=== PATIENT | male | born 1950 | race Caucasian/White ===

== ENCOUNTER 2017-02-17 11:22 | Emergency (ER) | payer OTHER, MEDICARE ==
[~2017-02-17] VITALS: Ht 165.1 cm; Wt 66.8 kg
[~2017-02-17 11:22] MED LIST: ALBU17IN INH; CYAN1000VL IM; DOXY100T16 PO; FINA5TAB2 PO; FLOM5CAP PO; GABA-283 PO; IPRASOL4 INH; NAPR500T3 PO; OMEP20CA3 PO; PARO40TA2 PO; PRED10TA PO; SILD50TA PO; SYMB16INH INH; TRIA1OI TOP; [UNRECOGNIZED DRUG - CODE] PO
[2017-02-17] MEDS ORDERED: DULO1CAP3 PO (11:41)
[2017-02-17] MEDS ORDERED: PRAZ1CAP PO (11:41)
[2017-02-17] MEDS ORDERED: [UNRECOGNIZED DRUG - OTHER] (11:41)
[2017-02-17] MEDS ORDERED: PERCOCET 5MG/325MG TAB PO ONE (14:15)
--- NOTE | 2017-02-17 14:46 | REP ---
Left lower extremity Duplex Doppler venous ultrasound: Real time compression and duplex Doppler interrogation of the left lower extremity deep venous system is performed. The left common femoral, superficial femoral and popliteal veins are fully compressible with transducer pressure and demonstrate normal spontaneous and phasic flow, without evidence of deep venous thrombosis. Impression: No evidence of deep venous thrombosis of the left lower extremity femoral popliteal venous system. Signed by Kalin Purcell MD 02/17/2017 02:38 P
[2017-02-17 15:03] VITALS: BP 149/73
[2017-02-17] MEDS ORDERED: PERC5TAB12 PO (15:05)
--- NOTE | 2017-02-17 15:50 | REP ---
LEFT FEMUR: AP and lateral views of the left femur are performed. There is no acute fracture or dislocation. There is mild joint space narrowing, subchondral sclerosis and spurring at the hip joint. There is an oval calcific body adjacent to the greater trochanter of the proximal left femur measuring approximately 2.2 cm in maximum diameter. There is a metallic prosthesis at the knee. Signed by Kalin Purcell MD 02/17/2017 05:09 P
--- NOTE | 2017-02-18 08:58 | ED PDOC ---
Post-Departure Follow-Up radiology report faxed to Graciela Shahid MD Feb 18, 2017 08:58
== END 2017-02-17 15:13 | disposition home or self-care (01) ==
LOC: M ED 11:22
DX: S70.12XA Contusion of left thigh, initial encounter (principal); W19.XXXA Unspecified fall, initial encounter; Y92.89 Other specified places as the place of occurrence of the external cause; Y93.89 Activity, other specified; Y99.8 Other external cause status; I10 Essential (primary) hypertension; M54.5 Low back pain; N40.0 Benign prostatic hyperplasia without lower urinary tract symptoms; Z79.899 Other long term (current) drug therapy; Z88.8 Allergy status to other drugs, medicaments and biological substances; F17.210 Nicotine dependence, cigarettes, uncomplicated

== ENCOUNTER 2018-08-03 12:01 | Inpatient (IN) | payer OTHER, MEDICARE ==
[~2018-08-03] VITALS: Ht 165.1 cm; Wt 72.9 kg
[~2018-08-03 12:01] MED LIST changes: +DULO1CAP3 PO; +FLOM0.4C39 PO; -FLOM5CAP PO; -GABA-283 PO; +GABA-845 PO; +IPRA0.00 INH; -IPRASOL4 INH; +NAPR-885 PO; -NAPR500T3 PO; +PERC5TAB12 PO; +PRAZ1CAP PO; +PRED-351 PO; -PRED10TA PO; +[UNRECOGNIZED DRUG - OTHER]
[2018-08-03] MEDS ORDERED: LIDOCAINE 2% 5ML JELLY UROJET TOP ONE (12:45)
--- NOTE | 2018-08-03 12:46 | REP ---
PORTABLE CHEST X-RAY: Single view. HISTORY: Dyspnea and cough. COMPARISON STUDY: August 08, 2014. FINDINGS: EKG monitoring electrodes overlie the chest. Lungs are symmetrically aerated and clear. Heart is not enlarged. The aorta is calcific and slightly tortuous. Pulmonary vasculature is not increased. No significant bony abnormality. IMPRESSION: No active disease. Electronically Signed by Jeramie Ramirez MD 08/03/2018 10:26 P
[2018-08-03 12:49] LABS: VENOUS BASE EXCESS 3.2 (-2.0-2.0); VENOUS HCO3 24.3 MEQ/L (23.0-27.0); VENOUS O2 SATURATION 95.2 % (60.0-80.0); VENOUS PARTIAL PRESSURE CO2 28.2 mmHg (38.0-50.0); VENOUS PARTIAL PRESSURE O2 67.2 mmHg (30.0-50.0); VENOUS PH 7.554 UNITS (7.330-7.430); VENOUS STANDARD HCO3 27.3 MEQ/L; VENOUS TOTAL CO2 25.2 MEQ/L (24.0-28.0)
[2018-08-03 12:53] LABS: BASO # 0.1 10^3/uL (0.0-0.2); BASO % 0.3 % (0.0-1.0); HEMATOCRIT 42.6 % (42.0-52.0); HEMOGLOBIN 14.4 g/dl (13.5-17.5); LYMPH # 0.9 10^3/uL (1.5-4.5); LYMPH % 4.3 % (24.0-44.0); MEAN CORPUSCULAR HEMOGLOBIN 28.8 pg (27.0-33.0); MEAN CORPUSCULAR HGB CONC 33.8 g/dl (32.0-36.5); MEAN CORPUSCULAR VOLUME 85.2 fl (80.0-96.0); MONO # 0.9 10^3/uL (0.0-0.8); MONO % 4.4 % (0.0-5.0); NEUTROPHILS # 17.9 10^3/uL (1.8-7.7); NEUTROPHILS % 87.8 % (36.0-66.0); PLATELET COUNT, AUTOMATED 199 10^3/uL (150-450); WHITE BLOOD COUNT 20.4 10^3/uL (4.0-10.0)
[2018-08-03 13:04] LABS: INR 0.85; PROTHROMBIN TIME 11.7 SECONDS (12.1-14.4)
[2018-08-03] MEDS: IPRATROPIUM 0.5MG/ALBUTEROL 2.5MG INH SOL UD 3ML (DUONEB)(J7620) NEB PRN ×3 (13:04→15:05)
[2018-08-03] MEDS ORDERED: traMADol 50 MG TAB PO ONE (13:30)
[2018-08-03 13:35] LABS: ALBUMIN 2.9 GM/DL (3.2-5.2); ALT/SGPT 95 U/L (12-78); BILIRUBIN,DIRECT 0.2 MG/DL (0.0-0.2); BILIRUBIN,TOTAL 0.6 MG/DL (0.2-1.0); BLOOD UREA NITROGEN 18 MG/DL (7-18); CALCIUM LEVEL 8.7 MG/DL (8.8-10.2); CARBON DIOXIDE LEVEL 24 MEQ/L (21-32); CHLORIDE LEVEL 106 MEQ/L (98-107); CPK CREATINE PHOSPHOKINASE 37 U/L (39-308); CREATININE FOR GFR 1.08 MG/DL (0.70-1.30); GLOMERULAR FILTRATION RATE > 60.0 (>49); GLUCOSE, FASTING 97 MG/DL (70-100); MB/CK RELATIVE INDEX 6.49 (< OR =4); NT-PRO BNP 38 PG/ML (<125); POTASSIUM SERUM 4.7 MEQ/L (3.5-5.1); SODIUM LEVEL 138 MEQ/L (136-145); TOTAL PROTEIN 5.7 GM/DL (6.4-8.2); TROPONIN I 0.04 NG/ML (< 0.10)
[2018-08-03] MEDS ORDERED: ISOVUE-370 76% 100ML VIAL (Q9967) As Ordered ONE (13:46)
[2018-08-03] MEDS ORDERED: NS 1,000 ML IV ONE (14:30)
[2018-08-03] MEDS ORDERED: NS IV ONE (14:45)
[2018-08-03] MEDS ORDERED: DILUENT IV ONE (14:45)
[2018-08-03] MEDS ORDERED: PIPERACILLIN/TAZOBACTAM SOD 3.375 GM in D5W MINI-BAG PLUS 50 ML IV ONE (15:00)
--- NOTE | 2018-08-03 15:26 | REP ---
CT ABDOMEN AND PELVIS WITH IV CONTRAST: TECHNIQUE: Axial contrast enhanced images from the lung bases to the pubic symphysis using 100 mL Isovue 370 intravenous contrast material with multiplanar reformations. Visualized lung bases demonstrate a tiny calcified granuloma in the right lower lobe. The liver is unremarkable. Patient has had a prior cholecystectomy. I do not see significant biliary dilatation. The spleen, adrenals, pancreas are unremarkable. There is no hydronephrosis bilaterally. There are three subcentimeter calcifications in the left renal collection system likely representing calculi. There is atherosclerotic calcification of the abdominal aorta without aneurysm. There is no adenopathy. There is no free air or free fluid. No bowel wall thickening is seen. No pelvic mass is seen. Urinary bladder is moderately distended and contains a tiny amount of air probably from recent catheterization. IMPRESSION: Status post cholecystectomy. No biliary dilatation. No free air or free fluid. No bowel thickening. Small amount of air in the bladder, which is moderately distended, probably from recent catheterization. There are three subcentimeter intrarenal calculi in the left kidney. No hydronephrosis. Electronically Signed by Kalin Purcell MD 08/04/2018 03:29 P
[2018-08-03] MEDS ORDERED: ANEC4CRE3 TOP (16:10)
[2018-08-03] MEDS ORDERED: TRAZ-160 PO (16:10)
[2018-08-03] MEDS ORDERED: VENTAER INH (16:10)
[2018-08-03] MEDS ORDERED: ATOR40TA75 PO (16:10)
[2018-08-03] MEDS ORDERED: DOXY100C PO (16:10)
[2018-08-03] MEDS ORDERED: VITA100014 PO (16:10)
[2018-08-03] MEDS ORDERED: PRED5TA PO (16:10)
[2018-08-03] MEDS ORDERED: VITA-145 PO (16:10)
[2018-08-03] MEDS ORDERED: GABA-1171 PO (16:10)
[2018-08-03] MEDS ORDERED: XALA0.007 OU (16:10)
--- NOTE | 2018-08-03 16:54 | HPEPDOC ---
General Date of Admission 08/03/18 Chief Complaint The patient is a 68-year-old male admitted with a reason for visit of SOB. Source: Patient, RN/, Old records Exam Limitations: No limitations Severity: Moderate History of Present Illness 68 year old male with PMH of COPD on chronic steroids, BPH, PTSD, depression, tardive dyskinesia, urinary retention, Chronic compression fracture of L1 vertebra for which he gets injections , tremors, chronic back and hip pain, gait instability was recented hospitalized at [facility] from to July 31 where he had gone for inability to urinate. He was managed for urinary retention and COPD exacerbation. He had gone for a post hospitalization follow up with his PMD Dr Jaimes at the [facility] today and was noted to be extremely SOB, with difficulty in completing sentences, difficulty in ambulation ans so was sent to our ED for evaluation. In the ED he was found to be SOB , tachypneic but not hy poxic. He was having extreme difficulty with ambulation limited by SOB and hip pain. He also was complaining of lower abdominal pain . CT abdomen pelvis was suggestive of urinary retention. He had straight cath done but again could not void so a salcido was placed for acute urinary retention. Lab work showed a elevated WBC of 20k. CXR was clear for any acute disease. he was admitted for Advanced COPD with acute urinary retention, gait instability and difficulty in ambulation. Patient lives alone and has been having difficulty with his ADLS due to extreme weakness and SOB. His ex was helping him but he feels that he may be unable to manage by himself at home anymore. Home Medications Scheduled Atorvastatin Calcium (Atorvastatin Calcium) 40 Mg Tablet, 20 MG PO DAILY, (Reported) Cholecalciferol (Vitamin D3) (Vitamin D3) 1,000 Unit Tablet, 2,000 UNIT PO DAILY, (Reported) Cyanocobalamin (Vitamin B-12) (Vitamin B-12) 1,000 Mcg Tablet, 1,000 MCG PO BID, (Reported) Doxycycline Hyclate (Doxycycline Hyclate) 100 Mg Capsule, 100 MG PO BID, ( Reported) PATIENT HAS 5 CAPSULES LEFT IN BOTTLE Duloxetine Hcl (Duloxetine HCl) 60 Mg Cap, 60 MG PO DAILY, (Reported) Finasteride (Finasteride) 5 Mg Tab, 5 MG PO DAILY, (Reported) Gabapentin (Gabapentin) 100 Mg Capsule, 700 MG PO BID, (Reported) [facility] SENDS PATIENT 100MG TABLETS TO MAKE 700MG BID Ipratropium/Albuterol Sulfate (Iprat-Albut 0.5-3(2.5) mg/3 ml) 1 Shannan Shannan, 1 VIAL INH QID, (Reported) Latanoprost (Xalatan) 0.005% 2.5ML Drops, 1 DROP OU QHS, (Reported) Omeprazole (Omeprazole) 20 Mg Cap, 20 MG PO ACB, (Reported) Paroxetine HCl (Paroxetine HCl) 40 Mg Tab, 40 MG PO DAILY, (Reported) Prazosin Hcl (Prazosin HCl) 1 Mg Cap, 1 MG PO QHS, (Reported) Prednisone (Prednisone) 5 Mg Tablet, 5 MG PO DAILY, (Reported) Sildenafil Citrate (Viagra) 50 Mg Tab, 50 MG PO ASDIRECTED, (Reported) Tamsulosin HCl (Flomax) 0.4 Mg Cap, 0.4 MG PO BID, (Reported) Trazodone HCl (Trazodone HCl) 50 Mg Tablet, 50 MG PO QHS, (Reported) Scheduled PRN Albuterol Sulfate (Ventolin Hfa) 18 Gm Hfa.aer.ad, 2 PUFF INH Q4H PRN for SHORTNESS OF BREATH, (Reported) Lidocaine (Anecream) 4% Cream..g., 1 APLCT TOP DAILY PRN for PAIN, (Reported) APPLIES TO HIP Allergies Coded Allergies: acetaminophen (Verified Allergy, Unknown, 08/03/18) methocarbamol (Verified Allergy, Unknown, 08/03/18) terazosin (Verified Allergy, Unknown, 08/03/18) vardenafil (Verified Allergy, Unknown, 08/03/18) Past Medical History Medical History COPD on chronic steroids, BPH, PTSD, depression, tardive dyskinesia, urinary retention, Chronic compression fracture of L1 vertebra for which he gets injections , tremors, chronic back and hip pain, gait instability Surgical History left knee replacement, cholecystectomy, tonsillectomy, back injections, left big toe surgery Family History Significant Family History: Diabetes, Hypertension Social History * Smoker: current smoker, greater than 1 pack/day Alcohol: Denies Drugs: denies A-FIB/CHADSVASC A-FIB History Current/History of A-Fib/PAF?: No Review of Systems Constitutional: Denies: Chills, Fever, Night Sweats Eyes: Denies: Pain, Vision change ENT: Denies: Head Aches, Ear Pain, Dysphagia Skin: Denies: Rash, Lesions, Breakdown Pulmonary: Reports: Dyspnea; Denies: Cough, Pleuritic Chest Pain Cardiovascular: Reports: Orthopnea, Edema; Denies: Chest Pain, Palpitations Gastrointestinal: Denies: Nausea, Vomiting, Abdominal Pain, Diarrhea Genitourinary: Reports: Frequency, Retention; Denies: Dysuria, Incontinence, Hematuria Musculoskeletal: Reports: Neck Pain, Back Pain, Joint Pain Neurological: Reports: Weakness Psych: Reports: Depression Physical Examination General Exam: Positive: Alert, Cooperative, No Acute Distress Eye Exam: Positive: Conjunctiva & lids normal ENT Exam: Positive: Atraumatic, Mucous membr. moist/pink, Tongue Midline, Other ENT (abnormal movement of tongue) Neck Exam: Positive: Supple Chest Exam: Positive: Rales (at both the bases), Rhonchi, Wheezing, Diminished Heart Exam: Positive: Tachycardic, Regular Rhythm, Normal S1, Normal S2; Negative: Rate Normal, Gallops, Murmurs, Rubs Telemetry: Positive: Sinus, Tachycardia Abdomen Exam: Positive: Normal bowel sounds, Soft, Other (obese) Skin Exam: Positive: Nl turgor and temperature; Negative: Breakdown, Lesion Neuro Exam: Positive: Strength at 5/5 X4 ext, Normal Tone, Reflexes 2+, Other (DTRs of the knee and ankle exacerbated. planters downgoing. ) Psych Exam: Positive: Anxiety, Oriented x 3 Vital Signs Vital Signs Date Time Temp Pulse Resp B/P (MAP) Pulse Ox O2 Delivery O2 Flow Rate FiO2 08/03/18 14:48 87 98 08/03/18 13:48 147/75 (99) 08/03/18 13:39 20 08/03/18 12:25 Room Air 08/03/18 12:17 97.7 Laboratory Data Labs 24H Laboratory Tests 2 08/03/18 12:29: Lactic Acid Level 2.8*H 08/03/18 12:38: Immature Granulocyte % (Auto) 3.2H, White Blood Count 20.4H, Red Blood Count 5.00, Hemoglobin 14.4, Hematocrit 42.6, Mean Corpuscular Volume 85.2, Mean Corpuscular Hemoglobin 28.8, Mean Corpuscular Hemoglobin Concent 33.8, Red Cell Distribution Width 14.8H, Platelet Count 199, Neutrophils (%) (Auto) 87.8H, Lymphocytes (%) (Auto) 4.3L, Monocytes (%) (Auto) 4.4, Eosinophils (%) (Auto) 0.0, Basophils (%) (Auto) 0.3, Neutrophils # (Auto) 17.9H, Lymphocytes # (Auto) 0.9L, Monocytes # (Auto) 0.9H, Eosinophils # (Auto) 0.0, Basophils # (Auto) 0.1, Nucleated Red Blood Cells % (auto) 0.0, Prothrombin Time 11.7L, Prothromb Time International Ratio 0.85, Blood Gas Bicarbonate Standard 27.3, Venous Blood pH 7.554H, Venous Blood Partial Pressure CO2 28.2L, Venous Blood Partial Pressure O2 67.2H, Venous Blood Total Carbon Dioxide 25.2, Venous Blood HCO3 24.3, Venous Blood Oxygen Saturation 95.2H, Venous Blood Base Excess 3.2H, Anion Gap 8, Glomerular Filtration Rate > 60.0, Calcium Level 8.7L, Aspartate Amino Transf (AST/SGOT) 34, Alanine Aminotransferase (ALT/SGPT) 95H, Alkaline Phosphatase 58, Total Bilirubin 0.6, Direct Bilirubin 0.2, Total Creatine Kinase 37L, Creatine Kinase MB 2.0, Creatine Kinase MB Relative Index 6.49H, Troponin I 0.04, LF-Lwn-S-Type Natriuretic Peptide 38, Total Protein 5.7L, Albumin 2.9L, Albumin/Globulin Ratio 1.04, Thyroid Stimulating Hormone (TSH) 3.200 08/03/18 13:16: Urine Color STRAW, Urine Appearance CLEAR, Urine pH 7.0, Urine Specific Center 1.008, Urine Protein NEGATIVE, Urine Glucose (UA) NEGATIVE, Urine Ketones NEGATIVE, Urine Blood NEGATIVE, Urine Nitrite NEGATIVE, Urine Bilirubin NEGATIVE, Urine Urobilinogen 0.2, Urine Leukocyte Esterase NEGATIVE, Urine WBC (Auto) 0, Urine RBC (Auto) 2, Urine Hyaline Casts (Auto) 0, Urine Bacteria (Auto) NEGATIVE, Urine Squamous Epithelial Cells 0, Urine Sperm (Auto) 08/03/18 16:21: CBC/BMP Laboratory Tests 08/03/18 12:38 Red Blood Count 5.00, Mean Corpuscular Volume 85.2, Mean Corpuscular Hemoglobin 28.8, Mean Corpuscular Hemoglobin Concent 33.8, Red Cell Distribution Width 14.8 H, Neutrophils (%) (Auto) 87.8 H, Lymphocytes (%) (Auto) 4.3 L, Monocytes (%) (Auto) 4.4, Eosinophils (%) (Auto) 0.0, Basophils (%) (Auto) 0.3, Neutrophils # (Auto) 17.9 H, Lymphocytes # (Auto) 0.9 L, Monocytes # (Auto) 0.9 H, Eosinophils # (Auto) 0.0, Basophils # (Auto) 0.1 Microbiology Microbiology 08/03/18 Blood Culture, Received Pending 08/03/18 Blood Culture, Received Pending Assessment/Plan 68 year old male with PMH of COPD on chronic steroids, BPH, PTSD, depression, tardive dyskinesia, urinary retention, Chronic compression fracture of L1 vertebra for which he gets injections , tremors, chronic back and hip pain, gait instability was recented hospitalized at [facility] from to July 31 where he had gone for inability to urinate. He was managed for urinary retention and COPD exacerbation. He had gone for a post hospitalization follow up with his PMD Dr Jaimes at the NH today and was noted to be extremely SOB, with difficulty in completing sentences, difficulty in ambulation ans so was sent to our ED for evaluation. In the ED he was found to be SOB , tachypnic but not hypoxic. He was having extreme difficulty with ambulation limited by SOB and hip pain. He also was complaining of lower abdominal pain . CT abdomen pelvis was suggestive of urinary retention. He had straight cath done but again could not void so a salcido was placed for acute urinary retention. Lab work showed a elevated WBC of 20k. CXR was clear for any acute disease. he was admitted for Advanced COPD with acute urinary retention, gait instability and difficulty in ambulation. Patient lives alone and has been having difficulty with his ADLS due to extreme weakness and SOB. His ex was helping him but he feels that he may be unable to manage by himself at home anymore. Acute urinary retention recurrent for past 7 days. Most probably due to BPH and may be ipratropium too However will get MRI to rule out any cord compression had a salcido placed in the ED continue flomax, finasteride. Leucocytosis probably due to steroids and stress demargination will order procalcitonin CXR cler, Ua clear, Abdomen ct no acute abnormality received zosyn in ED will hold of on further doses. COPD with emphysema with mild exacerbation Tachypniec and unable to speak in full sentences, accessory muscles working. will continue with duonebs, budesonide and steroid. PTSD continue prazosin, trazodone Chronic back pain , lumber vertebral compression fracture continue gabapentin, cymbalta. Tremors could be medication related. Tardive dyskinesia of the tongue and lips noted possibly due to psychiatric medications Hyperipidemia continue statin Gait instability will get PT eval DVT prophylaxis ordered. Plan / VTE VTE Prophylaxis Ordered?: Yes SAMIRA REA MD August 03, 2018 16:54
--- NOTE | 2018-08-03 19:38 | ECGEPIP ---
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
[2018-08-03 20:30] VITALS: BP 140/78
[2018-08-03] MEDS: TAMSULOSIN 0.4 MG CAP PO SCH (21:00)
[2018-08-03] MEDS: GABAPENTIN 100 MG CAP PO SCH (21:00)
[2018-08-03] MEDS: traZODone 50 MG TAB PO SCH (21:00)
[2018-08-03] MEDS: ENOXAPARIN 40 MG/0.4 ML SYRINGE (J1650) SC SCH (21:01)
--- NOTE | 2018-08-03 21:08 | REPVR ---
EXAM: MR Lumbar Spine Without Contrast. EXAM DATE/TIME: 08/03/2018 5:02 PM CLINICAL HISTORY: 68 years old, male; Signs and symptoms; Weakness; Additional info: Urinary retention new, difficulty walking, ? cord compressio TECHNIQUE: Imaging protocol: Multiplanar magnetic resonance images of the lumbar spine without intravenous contrast. COMPARISON: No relevant prior studies available. FINDINGS: Vertebrae: Unremarkable. There is straightening of the normal lumbar lordosis. L1-L2: Large anterior marginal osteophytes. Disc desiccation on the T2 weighted images.. No stenosis. L2-L3: Small anterior marginal osteophytes. Disc desiccation. Circumferential annulus bulge. No stenosis. L3-L4: Small anterior marginal osteophytes. Limbus vertebra. Modic type II endplate signal changes.. No stenosis. L4-L5: Narrowed intervertebral disc space with 5.7 mm of retrolisthesis of L5 with respect to L4. Small central area of signal loss within the disc on the T1 and T2-weighted images corresponds to a vacuum disc seen on CT scan.. Faint increased signal within the disc centrally on the T2-weighted images may be related to susceptibility effect from the vacuum disc. Circumferential annulus bulge with right posterior lateral disc extrusion. Narrowed right lateral recess. Hypertrophic facet arthropathy. Mild right foraminal stenosis. L5-S1: Narrowed intervertebral disc space. Modic type II endplate signal changes. Small area of increased signal within the disc on the T2-weighted images again corresponding to vacuum disc seen on CT scan. No stenosis. Spinal cord: The conus is posterior to L1.. No cord compression. Soft tissues: Unremarkable. IMPRESSION: 1. Grade 1 spondylolisthesis at L4-5 with right posterior lateral disc extrusion. Narrowed right lateral recess and mild right foraminal stenosis. 2. No spinal stenosis or cord compression Electronically signed by: Jing Peter On 08/03/2018 21:08:11 PM
[2018-08-03] MEDS: BUDESONIDE 0.5 MG/2 ML INHALATION SUSPENSION INH SCH (21:09)
[2018-08-03] MEDS: IPRATROPIUM 0.5MG/ALBUTEROL 2.5MG INH SOL UD 3ML (DUONEB)(J7620) NEB SCH (21:09)
[2018-08-03] MEDS: LATANOPROST 0.005% OPHTH SOLN 2.5 ML OU SCH (21:53)
[2018-08-03] MEDS: PRAZOSIN 1 MG CAP PO SCH (21:54)
[2018-08-04] MEDS: IPRATROPIUM 0.5MG/ALBUTEROL 2.5MG INH SOL UD 3ML (DUONEB)(J7620) NEB SCH ×4 (02:38→19:34)
[2018-08-04 06:00] VITALS: BP 107/56
[2018-08-04 06:15] LABS: BASO # 0.1 10^3/uL (0.0-0.2); BASO % 0.4 % (0.0-1.0); HEMATOCRIT 39.5 % (42.0-52.0); HEMOGLOBIN 13.2 g/dl (13.5-17.5); LYMPH # 1.2 10^3/uL (1.5-4.5); LYMPH % 6.9 % (24.0-44.0); MEAN CORPUSCULAR HEMOGLOBIN 29.1 pg (27.0-33.0); MEAN CORPUSCULAR HGB CONC 33.4 g/dl (32.0-36.5); MEAN CORPUSCULAR VOLUME 87.2 fl (80.0-96.0); MONO # 1.1 10^3/uL (0.0-0.8); MONO % 6.7 % (0.0-5.0); NEUTROPHILS # 14.2 10^3/uL (1.8-7.7); NEUTROPHILS % 83.6 % (36.0-66.0); PLATELET COUNT, AUTOMATED 178 10^3/uL (150-450); RED BLOOD COUNT 4.53 10^6/uL (4.30-6.10)
[2018-08-04 06:41] LABS: BLOOD UREA NITROGEN 12 MG/DL (7-18); CALCIUM LEVEL 8.2 MG/DL (8.8-10.2); CARBON DIOXIDE LEVEL 25 MEQ/L (21-32); CHLORIDE LEVEL 107 MEQ/L (98-107); CREATININE FOR GFR 0.94 MG/DL (0.70-1.30); GLOMERULAR FILTRATION RATE > 60.0 (>49); GLUCOSE, FASTING 118 MG/DL (70-100); POTASSIUM SERUM 3.7 MEQ/L (3.5-5.1); SODIUM LEVEL 139 MEQ/L (136-145)
[2018-08-04] MEDS: BUDESONIDE 0.5 MG/2 ML INHALATION SUSPENSION INH SCH ×2 (07:38→19:34)
[2018-08-04] MEDS: NS 1,000 ML IV SCH ×2 (07:42→20:01)
[2018-08-04] MEDS: DULoxetine 30 MG CAP (CYMBALTA) PO SCH (08:32)
[2018-08-04] MEDS: PARoxetine 20 MG TAB PO SCH (08:32)
[2018-08-04] MEDS: ENOXAPARIN 40 MG/0.4 ML SYRINGE (J1650) SC SCH (08:32)
[2018-08-04] MEDS: predniSONE 5 MG TAB PO SCH (08:32)
[2018-08-04] MEDS: GABAPENTIN 100 MG CAP PO SCH ×2 (08:32→20:01)
[2018-08-04] MEDS: OMEPRAZOLE 20 MG CAP PO SCH (08:32)
[2018-08-04] MEDS: ATORVASTATIN 20 MG TAB PO SCH (08:32)
[2018-08-04] MEDS: FINASTERIDE 5 MG TAB PO SCH (08:32)
[2018-08-04] MEDS: TAMSULOSIN 0.4 MG CAP PO SCH ×2 (08:32→20:01)
--- NOTE | 2018-08-04 12:31 | IPNPDOC ---
Subjective Date Seen The patient was seen on 08/04/18. Subjective Chief Complaint/HPI SOB , tremors, weakness Events since last encounter SOb is a little better , however still continues to be very weak with difficulty in mobilization. He does have some essential tremors in both the upper extremities. No fever or chills, no cough or phlegm. MRI noted no cord compression. Objective Physical Examination General Exam: Positive: Alert, Cooperative, No Acute Distress Eye Exam: Positive: Conjunctiva & lids normal ENT Exam: Positive: Atraumatic, Mucous membr. moist/pink, Tongue Midline, Other ENT (abnormal movement of tongue) Neck Exam: Positive: Supple Chest Exam: Positive: Rales (at both the bases), Diminished Heart Exam: Positive: Rate Normal, Regular Rhythm, Normal S1, Normal S2; Negative: Gallops, Murmurs, Rubs Abdomen Exam: Positive: Normal bowel sounds, Soft, Other (obese) Extremity Exam: Negative: Clubbing, Cyanosis, Edema Skin Exam: Positive: Nl turgor and temperature; Negative: Breakdown, Lesion Neuro Exam: Positive: Strength at 5/5 X4 ext, Normal Tone, Reflexes 2+, Other (DTRs of the knee and ankle exacerbated. planters downgoing. ) Psych Exam: Positive: Anxiety, Oriented x 3 Assessment /Plan Assessment 68 year old male with PMH of COPD on chronic steroids, BPH, PTSD, depression, tardive dyskinesia, urinary retention, Chronic compression fracture of L1 vertebra for which he gets injections , tremors, chronic back and hip pain, gait instability was recented hospitalized at [facility] from to July 31 where he had gone for inability to urinate. He was managed for urinary retention and COPD exacerbation. He had gone for a post hospitalization follow up with his PMD Dr Jaimes at the [place] today and was noted to be extremely SOB, with difficulty in completing sentences, difficulty in ambulation ans so was sent to our ED for evaluation. In the ED he was found to be SOB , tachypnic but not hypoxic. He was having extreme difficulty with ambulation limited by SOB and hip pain. He also was complaining of lower abdominal pain . CT abdomen pelvis was suggestive of urinary retention. He had straight cath done but again could not void so a salcido was placed for acute urinary retention. Lab work showed a elevated WBC of 20k. CXR was clear for any acute disease. he was admitted for Advanced COPD with acute urinary retention, gait instability and difficulty in ambulation. Patient lives alone and has been having difficulty with his ADLS due to extreme weakness and SOB. His ex was helping him but he feels that he may be unable to manage by himself at home anymore. Acute urinary retention recurrent for past 7 days. Most probably due to BPH and may be ipratropium too MRI negative for any cord compression had a salcido placed in the ED continue flomax, finasteride. Leucocytosis probably due to steroids and stress demargination will order procalcitonin CXR cler, Ua clear, Abdomen ct no acute abnormality received zosyn in ED will hold of on further doses. COPD with emphysema with mild exacerbation Tachypniec and unable to speak in full sentences, accessory muscles working. will continue with duonebs, budesonide and steroid. PTSD continue prazosin, trazodone Chronic back pain gets injections at the back continue gabapentin, cymbalta. Tremors could be medication related. Tardive dyskinesia of the tongue and lips noted possibly due to psychiatric medications Hyperipidemia continue statin Gait instability will get PT eval DVT prophylaxis ordered. Plan/VTE VTE Prophylaxis Ordered?: Yes VS, I&O, 24H, Fishbone Vital Signs/I&O Vital Signs Date Time Temp Pulse Resp B/P (MAP) Pulse Ox O2 Delivery O2 Flow Rate FiO2 08/04/18 06:00 98.3 84 20 107/56 (73) 96 08/03/18 12:25 Room Air I&O- Last 24 Hours up to 6 AM 08/04/18 06:00 Intake Total 1150 ml Output Total 4155 ml Balance -3005 ml Laboratory Data 24H LABS Laboratory Tests 2 08/03/18 12:29: Lactic Acid Level 2.8*H 08/03/18 12:38: Immature Granulocyte % (Auto) 3.2H, White Blood Count 20.4H, Red Blood Count 5.00, Hemoglobin 14.4, Hematocrit 42.6, Mean Corpuscular Volume 85.2, Mean Corpuscular Hemoglobin 28.8, Mean Corpuscular Hemoglobin Concent 33.8, Red Cell Distribution Width 14.8H, Platelet Count 199, Neutrophils (%) (Auto) 87.8H, Lymphocytes (%) (Auto) 4.3L, Monocytes (%) (Auto) 4.4, Eosinophils (%) (Auto) 0.0, Basophils (%) (Auto) 0.3, Neutrophils # (Auto) 17.9H, Lymphocytes # (Auto) 0.9L, Monocytes # (Auto) 0.9H, Eosinophils # (Auto) 0.0, Basophils # (Auto) 0.1, Nucleated Red Blood Cells % (auto) 0.0, Prothrombin Time 11.7L, Prothromb Time International Ratio 0.85, Blood Gas Bicarbonate Standard 27.3, Venous Blood pH 7.554H, Venous Blood Partial Pressure CO2 28.2L, Venous Blood Partial Pressure O2 67.2H, Venous Blood Total Carbon Dioxide 25.2, Venous Blood HCO3 24.3, Venous Blood Oxygen Saturation 95.2H, Venous Blood Base Excess 3.2H, Anion Gap 8, Glomerular Filtration Rate > 60.0, Calcium Level 8.7L, Aspartate Amino Transf (AST/SGOT) 34, Alanine Aminotransferase (ALT/SGPT) 95H, Alkaline Phosphatase 58, Total Bilirubin 0.6, Direct Bilirubin 0.2, Total Creatine Kinase 37L, Creatine Kinase MB 2.0, Creatine Kinase MB Relative Index 6.49H, Troponin I 0.04, WF-Lis-Y-Type Natriuretic Peptide 38, Total Protein 5.7L, Albumin 2.9L, A lbumin/Globulin Ratio 1.04, Thyroid Stimulating Hormone (TSH) 3.200 08/03/18 13:16: Urine Color STRAW, Urine Appearance CLEAR, Urine pH 7.0, Urine Specific [place] 1.008, Urine Protein NEGATIVE, Urine Glucose (UA) NEGATIVE, Urine Ketones NEGATIVE, Urine Blood NEGATIVE, Urine Nitrite NEGATIVE, Urine Bilirubin NEGATIVE, Urine Urobilinogen 0.2, Urine Leukocyte Esterase NEGATIVE, Urine WBC (Auto) 0, Urine RBC (Auto) 2, Urine Hyaline Casts (Auto) 0, Urine Bacteria (Auto) NEGATIVE, Urine Squamous Epithelial Cells 0, Urine Sperm (Auto) 08/03/18 16:21: 08/03/18 18:22: Lactic Acid Followup at 4 Hours 6.0*H 08/04/18 05:39: Immature Granulocyte % (Auto) 2.4, White Blood Count 17.0H, Red Blood Count 4.53, Hemoglobin 13.2L, Hematocrit 39.5L, Mean Corpuscular Volume 87.2, Mean Corpuscular Hemoglobin 29.1, Mean Corpuscular Hemoglobin Concent 33.4, Red Cell Distribution Width 14.8H, Platelet Count 178, Neutrophils (%) (Auto) 83.6H, Lymphocytes (%) (Auto) 6.9L, Monocytes (%) (Auto) 6.7H, Eosinophils (%) (Auto) 0.0, Basophils (%) (Auto) 0.4, Neutrophils # (Auto) 14.2H, Lymphocytes # (Auto) 1.2L, Monocytes # (Auto) 1.1H, Eosinophils # (Auto) 0.0, Basophils # (Auto) 0.1, Nucleated Red Blood Cells % (auto) 0.0, Anion Gap 7L, Glomerular Filtration Rate > 60.0, Blood Urea Nitrogen 12, Creatinine 0.94, Sodium Level 139, Potassium Level 3.7#, Chloride Level 107, Carbon Dioxide Level 25, Calcium Level 8.2L 08/04/18 10:04: Lactic Acid Level 4.1*H 08/04/18 11:26: Bedside Glucose (Misc Panel) 108 CBC/BMP Laboratory Tests 08/03/18 12:38 Red Blood Count 5.00, Mean Corpuscular Volume 85.2, Mean Corpuscular Hemoglobin 28.8, Mean Corpuscular Hemoglobin Concent 33.8, Red Cell Distribution Width 14.8 H, Neutrophils (%) (Auto) 87.8 H, Lymphocytes (%) (Auto) 4.3 L, Monocytes (%) (Auto) 4.4, Eosinophils (%) (Auto) 0.0, Basophils (%) (Auto) 0.3, Neutrophils # (Auto) 17.9 H, Lymphocytes # (Auto) 0.9 L, Monocytes # (Auto) 0.9 H, Eosinophils # (Auto) 0.0, Basophils # (Auto) 0.1 08/04/18 05:39 Red Blood Count 4.53, Mean Corpuscular Volume 87.2, Mean Corpuscular Hemoglobin 29.1, Mean Corpuscular Hemoglobin Concent 33.4, Red Cell Distribution Width 14.8 H, Neutrophils (%) (Auto) 83.6 H, Lymphocytes (%) (Auto) 6.9 L, Monocytes (%) (Auto) 6.7 H, Eosinophils (%) (Auto) 0.0, Basophils (%) (Auto) 0.4, Neutrophils # (Auto) 14.2 H, Lymphocytes # (Auto) 1.2 L, Monocytes # (Auto) 1.1 H, Eosinophils # (Auto) 0.0, Basophils # (Auto) 0.1, Calcium Level 8.2 L Microbiology Microbiology 08/03/18 Blood Culture, Received Pending 08/03/18 Blood Culture, Received Pending SAMIRA REA MD August 04, 2018 12:31
[2018-08-04 14:00] VITALS: BP 137/65
[2018-08-04] MEDS: LATANOPROST 0.005% OPHTH SOLN 2.5 ML OU SCH (20:01)
[2018-08-04] MEDS: traZODone 50 MG TAB PO SCH (20:01)
[2018-08-04] MEDS: PRAZOSIN 1 MG CAP PO SCH (20:03)
[2018-08-04 22:00] VITALS: BP 124/60
[2018-08-05] MEDS: IPRATROPIUM 0.5MG/ALBUTEROL 2.5MG INH SOL UD 3ML (DUONEB)(J7620) NEB SCH ×4 (01:20→19:40)
[2018-08-05 06:00] VITALS: BP 136/83
[2018-08-05 06:25] LABS: BASO # 0.1 10^3/uL (0.0-0.2); BASO % 0.6 % (0.0-1.0); EOS # 0.1 10^3/uL (0.0-0.50); EOS % 0.5 % (0.0-3.0); HEMATOCRIT 40.2 % (42.0-52.0); HEMOGLOBIN 13.2 g/dl (13.5-17.5); LYMPH # 2.1 10^3/uL (1.5-4.5); LYMPH % 20.8 % (24.0-44.0); MEAN CORPUSCULAR HEMOGLOBIN 29.3 pg (27.0-33.0); MEAN CORPUSCULAR HGB CONC 32.8 g/dl (32.0-36.5); MEAN CORPUSCULAR VOLUME 89.3 fl (80.0-96.0); MONO # 0.8 10^3/uL (0.0-0.8); MONO % 7.7 % (0.0-5.0); NEUTROPHILS # 6.6 10^3/uL (1.8-7.7); NEUTROPHILS % 67.5 % (36.0-66.0); PLATELET COUNT, AUTOMATED 167 10^3/uL (150-450); WHITE BLOOD COUNT 9.9 10^3/uL (4.0-10.0)
[2018-08-05 06:31] LABS: BLOOD UREA NITROGEN 8 MG/DL (7-18); CALCIUM LEVEL 8.2 MG/DL (8.8-10.2); CARBON DIOXIDE LEVEL 27 MEQ/L (21-32); CHLORIDE LEVEL 109 MEQ/L (98-107); CREATININE FOR GFR 0.86 MG/DL (0.70-1.30); GLOMERULAR FILTRATION RATE > 60.0 (>49); GLUCOSE, FASTING 82 MG/DL (70-100); POTASSIUM SERUM 3.9 MEQ/L (3.5-5.1); SODIUM LEVEL 142 MEQ/L (136-145)
[2018-08-05] MEDS: BUDESONIDE 0.5 MG/2 ML INHALATION SUSPENSION INH SCH ×2 (07:31→19:40)
[2018-08-05] MEDS: ATORVASTATIN 20 MG TAB PO SCH (10:06)
[2018-08-05] MEDS: OMEPRAZOLE 20 MG CAP PO SCH (10:06)
[2018-08-05] MEDS: predniSONE 5 MG TAB PO SCH (10:06)
[2018-08-05] MEDS: GABAPENTIN 100 MG CAP PO SCH ×2 (10:06→20:55)
[2018-08-05] MEDS: TAMSULOSIN 0.4 MG CAP PO SCH ×2 (10:07→20:56)
[2018-08-05] MEDS: FINASTERIDE 5 MG TAB PO SCH (10:07)
[2018-08-05] MEDS: PARoxetine 20 MG TAB PO SCH (10:07)
[2018-08-05] MEDS: ENOXAPARIN 40 MG/0.4 ML SYRINGE (J1650) SC SCH (10:07)
[2018-08-05] MEDS: DULoxetine 30 MG CAP (CYMBALTA) PO SCH (10:07)
[2018-08-05] MEDS: NS 1,000 ML IV SCH (10:08)
--- NOTE | 2018-08-05 12:06 | IPNPDOC ---
Subjective Date Seen The patient was seen on 08/05/18. Subjective Chief Complaint/HPI SOB, weakness Events since last encounter Patient continues to say he does not feel well . He still complains of SOb which he says has not improved much. Says still having bouts of dry coughing with some chest tightness. no fever or chills, no nausea or vomiting or diarrhea. Complains of left hip pain on the lateral side which is causing him to have some trouble ambulating. He is working with PT. Objective Physical Examination General Exam: Positive: Alert, Cooperative, No Acute Distress, Other Eye Exam: Positive: Conjunctiva & lids normal ENT Exam: Positive: Atraumatic, Mucous membr. moist/pink, Tongue Midline, Other ENT (abnormal movement of tongue) Neck Exam: Positive: Supple Chest Exam: Positive: Rales (at both the bases), Rhonchi, Wheezing Heart Exam: Positive: Rate Normal, Regular Rhythm, Normal S1, Normal S2; Negative: Gallops, Murmurs, Rubs Abdomen Exam: Positive: Normal bowel sounds, Soft, Other (obese) Extremity Exam: Negative: Clubbing, Cyanosis, Edema Skin Exam: Positive: Nl turgor and temperature; Negative: Breakdown, Lesion Neuro Exam: Positive: Strength at 5/5 X4 ext, Normal Tone, Reflexes 2+, Other (DTRs of the knee and ankle exacerbated. planters downgoing. ) Psych Exam: Positive: Anxiety, Oriented x 3 Assessment /Plan Assessment 68 year old male with PMH of COPD on chronic steroids, BPH, PTSD, depression, tardive dyskinesia, urinary retention, Chronic compression fracture of L1 vertebra for which he gets injections , tremors, chronic back and hip pain, gait instability was recented hospitalized at [facility] from to July 31 where he had gone for inability to urinate. He was managed for urinary retention and COPD exacerbation. He had gone for a post hospitalization follow up with his PMD Dr Jaimes at the [place] today and was noted to be extremely SOB, with difficulty in completing sentences, difficulty in ambulation ans so was sent to our ED for evaluation. In the ED he was found to be SOB , tachypnic but not hypoxic. He was having extreme difficulty with ambulation limited by SOB and hip pain. He also was complaining of lower abdominal pain . CT abdomen pelvis was suggestive of urinary retention. He had straight cath done but again could not void so a salcido was placed for acute urinary retention. Lab work showed a elevated WBC of 20k. CXR was clear for any acute disease. he was admitted for Advanced COPD with acute urinary retention, gait instability and difficulty in ambulation. Patient lives alone and has been having difficulty with his ADLS due to extreme weakness and SOB. His ex was helping him but he feels that he may be unable to manage by himself at home anymore. Acute urinary retention recurrent for past 7 days. Most probably due to BPH and may be ipratropium too MRI negative for any cord compression had a salcido placed in the ED continue flomax, finasteride. Leucocytosis probably due to steroids and stress demargination will order procalcitonin CXR clear, Ua clear, Abdomen ct no acute abnormality received zosyn in ED will hold of on further doses. COPD with emphysema with mild exacerbation will increase steroids. will continue with duonebs, budesonide Lacticacidosis present on admission due to increased work of breathing. part of it could also be related to too frequent use of albuterol nebs. No signs of infection was present. PTSD continue prazosin, trazodone Chronic back pain and new left hip pain gets injections at the back continue gabapentin, cymbalta. will get xray of hip Tremors could be medication related. Tardive dyskinesia of the tongue and lips noted possibly due to psychiatric medications Hyperipidemia continue statin Gait instability will get PT eval DVT prophylaxis ordered. Plan/VTE VTE Prophylaxis Ordered?: Yes VS, I&O, 24H, Fishbone Vital Signs/I&O Vital Signs Date Time Temp Pulse Resp B/P (MAP) Pulse Ox O2 Delivery O2 Flow Rate FiO2 08/05/18 06:00 98.3 81 18 136/83 (100) 95 08/03/18 12:25 Room Air I&O- Last 24 Hours up to 6 AM 08/05/18 06:00 Intake Total 4590 ml Output Total 4400 ml Balance 190 ml Laboratory Data 24H LABS Laboratory Tests 2 08/04/18 14:29: Lactic Acid Followup at 4 Hours 3.8*H 08/05/18 05:35: Immature Granulocyte % (Auto) 2.9, White Blood Count 9.9, Red Blood Count 4.50, Hemoglobin 13.2L, Hematocrit 40.2L, Mean Corpuscular Volume 89.3, Mean Corpuscular Hemoglobin 29.3, Mean Corpuscular Hemoglobin Concent 32.8, Red Cell Distribution Width 15.3H, Platelet Count 167, Neutrophils (%) (Auto) 67.5H, Lymphocytes (%) (Auto) 20.8L, Monocytes (%) (Auto) 7.7H, Eosinophils (%) (Auto) 0.5, Basophils (%) (Auto) 0.6, Neutrophils # (Auto) 6.6, Lymphocytes # (Auto) 2.1, Monocytes # (Auto) 0.8, Eosinophils # (Auto) 0.1, Basophils # (Auto) 0.1, Nucleated Red Blood Cells % (auto) 0.0, Anion Gap 6L, Glomerular Filtration Rate > 60.0, Blood Urea Nitrogen 8, Creatinine 0.86, Sodium Level 142, Potassium Level 3.9, Chloride Level 109H, Carbon Dioxide Level 27, Calcium Level 8.2L 08/05/18 07:23: Lactic Acid Level 1.4 CBC/BMP Laboratory Tests 08/05/18 05:35 Red Blood Count 4.50, Mean Corpuscular Volume 89.3, Mean Corpuscular Hemoglobin 29.3, Mean Corpuscular Hemoglobin Concent 32.8, Red Cell Distribution Width 15.3 H, Neutrophils (%) (Auto) 67.5 H, Lymphocytes (%) (Auto) 20.8 L, Monocytes (%) (Auto) 7.7 H, Eosinophils (%) (Auto) 0.5, Basophils (%) (Auto) 0.6, Neutrophils # (Auto) 6.6, Lymphocytes # (Auto) 2.1, Monocytes # (Auto) 0.8, Eosinophils # (Auto) 0.1, Basophils # (Auto) 0.1, Calcium Level 8.2 L Microbiology Microbiology 08/03/18 Blood Culture - Preliminary, Resulted No growth after 24 hours . All specim... 08/03/18 Blood Culture - Preliminary, Resulted No growth after 24 hours . All specim... SAMIRA REA MD August 05, 2018 12:06
[2018-08-05] MEDS ORDERED: predniSONE 20 MG TAB PO ONE (12:15)
[2018-08-05 14:00] VITALS: BP 109/66
--- NOTE | 2018-08-05 15:52 | REP ---
Left hip: Two views. History: Pain. Difficulty walking. Comparison left femur radiographs are from February 17, 2017. Findings: There is a large dystrophic calcification anteriorly adjacent to the greater trochanter consistent with calcific tendonitis or bursitis. This calcification measures 2.0 cm in greatest diameter. It is unchanged from the 2017 prior study. There is chondrocalcinosis noted at the hip as well. Acetabular spurring is seen superiorly and inferiorly consistent with osteoarthritis. No acute abnormality is seen. A Pereira catheter is noted. Impression: Left hip osteoarthritis, chondrocalcinosis, large dystrophic calcific deposit in the soft tissues adjacent to the greater trochanter consistent with calcific tendonitis or bursitis. Electronically Signed by Jeramie Ramirez MD 08/05/2018 04:08 P
[2018-08-05] MEDS: LATANOPROST 0.005% OPHTH SOLN 2.5 ML OU SCH (20:55)
[2018-08-05] MEDS: traZODone 50 MG TAB PO SCH (20:55)
[2018-08-05] MEDS: PRAZOSIN 1 MG CAP PO SCH (20:56)
[2018-08-05 22:00] VITALS: BP 130/72
[2018-08-06] MEDS: IPRATROPIUM 0.5MG/ALBUTEROL 2.5MG INH SOL UD 3ML (DUONEB)(J7620) NEB SCH ×4 (02:00→19:45)
[2018-08-06 05:58] LABS: BASO % 0.2 % (0.0-1.0); EOS % 0.1 % (0.0-3.0); HEMATOCRIT 39.9 % (42.0-52.0); HEMOGLOBIN 13.4 g/dl (13.5-17.5); LYMPH # 1.1 10^3/uL (1.5-4.5); LYMPH % 8.2 % (24.0-44.0); MEAN CORPUSCULAR HEMOGLOBIN 28.9 pg (27.0-33.0); MEAN CORPUSCULAR HGB CONC 33.6 g/dl (32.0-36.5); MONO # 0.9 10^3/uL (0.0-0.8); MONO % 6.8 % (0.0-5.0); NEUTROPHILS # 11.3 10^3/uL (1.8-7.7); NEUTROPHILS % 83.2 % (36.0-66.0); PLATELET COUNT, AUTOMATED 161 10^3/uL (150-450); RED BLOOD COUNT 4.64 10^6/uL (4.30-6.10); WHITE BLOOD COUNT 13.6 10^3/uL (4.0-10.0)
[2018-08-06 06:00] VITALS: BP 118/63
[2018-08-06 06:19] LABS: BLOOD UREA NITROGEN 10 MG/DL (7-18); CALCIUM LEVEL 8.2 MG/DL (8.8-10.2); CARBON DIOXIDE LEVEL 28 MEQ/L (21-32); CHLORIDE LEVEL 104 MEQ/L (98-107); CREATININE FOR GFR 0.84 MG/DL (0.70-1.30); GLOMERULAR FILTRATION RATE > 60.0 (>49); GLUCOSE, FASTING 100 MG/DL (70-100); POTASSIUM SERUM 3.7 MEQ/L (3.5-5.1); SODIUM LEVEL 139 MEQ/L (136-145)
[2018-08-06] MEDS: BUDESONIDE 0.5 MG/2 ML INHALATION SUSPENSION INH SCH ×2 (07:28→19:45)
[2018-08-06] MEDS: ENOXAPARIN 40 MG/0.4 ML SYRINGE (J1650) SC SCH (09:31)
[2018-08-06] MEDS: OMEPRAZOLE 20 MG CAP PO SCH (09:32)
[2018-08-06] MEDS: DULoxetine 30 MG CAP (CYMBALTA) PO SCH (09:32)
[2018-08-06] MEDS: ATORVASTATIN 20 MG TAB PO SCH (09:32)
[2018-08-06] MEDS: FINASTERIDE 5 MG TAB PO SCH (09:32)
[2018-08-06] MEDS: TAMSULOSIN 0.4 MG CAP PO SCH ×2 (09:32→20:15)
[2018-08-06] MEDS: PARoxetine 20 MG TAB PO SCH (09:32)
[2018-08-06] MEDS: predniSONE 20 MG TAB PO SCH (09:32)
[2018-08-06] MEDS: GABAPENTIN 100 MG CAP PO SCH ×2 (09:32→20:13)
--- NOTE | 2018-08-06 11:14 | IPNPDOC ---
Subjective Date Seen The patient was seen on 08/06/18. Subjective Chief Complaint/HPI SOb, weakness Events since last encounter Continues to complains of SOB. He also has pain on the lateral side of the left hip which is causing problem with walking. He continues to have dry cough. No fever or chills. No chest pain . He has not done well with PT yesterday. Could be due to his breathing being bad yesterday and the hip pain. Hip xray reviewed have consulted ortho. Objective Physical Examination General Exam: Positive: Alert, Cooperative, No Acute Distress Eye Exam: Positive: Conjunctiva & lids normal ENT Exam: Positive: Atraumatic, Mucous membr. moist/pink, Tongue Midline, Other ENT (abnormal movement of tongue) Neck Exam: Positive: Supple Chest Exam: Positive: Rales (at both the bases), Rhonchi, Wheezing, Diminished Heart Exam: Positive: Tachycardic, Regular Rhythm, Normal S1, Normal S2; Negative: Rate Normal, Gallops, Murmurs, Rubs Telemetry: Positive: Sinus, Tachycardia Abdomen Exam: Positive: Normal bowel sounds, Soft, Other (obese) Extremity Exam: Negative: Clubbing, Cyanosis, Edema Skin Exam: Positive: Nl turgor and temperature; Negative: Breakdown, Lesion Neuro Exam: Positive: Strength at 5/5 X4 ext, Normal Tone, Reflexes 2+, Other (DTRs of the knee and ankle exacerbated. planters downgoing. ) Psych Exam: Positive: Anxiety, Oriented x 3 Assessment /Plan Assessment 68 year old male with PMH of COPD on chronic steroids, BPH, PTSD, depression, tardive dyskinesia, urinary retention, Chronic compression fracture of L1 vertebra for which he gets injections , tremors, chronic back and hip pain, gait instability was recented hospitalized at [facility] from to July 31 where he had gone for inability to urinate. He was managed for urinary retention and COPD exacerbation. He had gone for a post hospitalization follow up with his PMD Dr Jaimes at the [place] today and was noted to be extremely SOB, with difficulty in completing sentences, difficulty in ambulation ans so was sent to our ED for evaluation. In the ED he was found to be SOB , tachypnic but not hypoxic. He was having extreme difficulty with ambulation limited by SOB and hip pain. He also was complaining of lower abdominal pain . CT abdomen pelvis was suggestive of urinary retention. He had straight cath done but again could not void so a salcido was placed for acute urinary retention. Lab work showed a elevated WBC of 20k. CXR was clear for any acute disease. he was admitted for Advanced COPD with acute urinary retention, gait instability and difficulty in ambulation. Patient lives alone and has been having difficulty with his ADLS due to extreme weakness and SOB. His ex was helping him but he feels that he may be unable to manage by himself at home anymore. Acute urinary retention recurrent Most probably due to BPH and may be ipratropium too MRI negative for any cord compression had a salcido placed in the ED continue flomax, finasteride. will go home with salcido and referral to Urology as outpatient. Leucocytosis probably due to steroids and stress demargination Had resolved now arising today as steroid was increased procalcitonin not elevated. CXR clear, Ua clear, Abdomen ct no acute abnormality received zosyn in ED will hold of on further doses. COPD with emphysema with mild exacerbation will increase steroids. will continue with duonebs, budesonide Lacticacidosis present on admission due to increased work of breathing. part of it could also be related to too frequent use of albuterol nebs. No signs of infection was present. PTSD continue prazosin, trazodone Chronic back pain and new left hip pain gets injections at the back continue gabapentin, cymbalta. Hip xray shows left trochanteric bursitis vs tendinitis. Ortho consulted. Tremors could be medication related. Tardive dyskinesia of the tongue and lips noted possibly due to psychiatric medications Hyperlipidemia continue statin Gait instability continue PT DVT prophylaxis ordered. Dispo: to rehab Plan/VTE VTE Prophylaxis Ordered?: Yes VS, I&O, 24H, Fishbone Vital Signs/I&O Vital Signs Date Time Temp Pulse Resp B/P (MAP) Pulse Ox O2 Delivery O2 Flow Rate FiO2 08/06/18 06:00 97.4 78 18 118/63 (81) 97 08/03/18 12:25 Room Air I&O- Last 24 Hours up to 6 AM 08/06/18 05:59 Intake Total 2675 ml Output Total 5170 ml Balance -2495 ml Laboratory Data 24H LABS Laboratory Tests 2 08/06/18 05:22: Immature Granulocyte % (Auto) 1.5, White Blood Count 13.6H, Red Blood Count 4.64, Hemoglobin 13.4L, Hematocrit 39.9L, Mean Corpuscular Volume 86.0, Mean Corpuscular Hemoglobin 28.9, Mean Corpuscular Hemoglobin Concent 33.6, Red Cell Distribution Width 15.1H, Platelet Count 161, Neutrophils (%) (Auto) 83.2H, Lymphocytes (%) (Auto) 8.2L, Monocytes (%) (Auto) 6.8H, Eosinophils (%) (Auto) 0.1, Basophils (%) (Auto) 0.2, Neutrophils # (Auto) 11.3H, Lymphocytes # (Auto) 1.1L, Monocytes # (Auto) 0.9H, Eosinophils # (Auto) 0.0, Basophils # (Auto) 0.0, Nucleated Red Blood Cells % (auto) 0.0, Anion Gap 7L, Glomerular Filtration Rate > 60.0, Blood Urea Nitrogen 10, Creatinine 0.84, Sodium Level 139, Potassium Level 3.7, Chloride Level 104, Carbon Dioxide Level 28, Calcium Level 8.2L CBC/BMP Laboratory Tests 08/06/18 05:22 Red Blood Count 4.64, Mean Corpuscular Volume 86.0, Mean Corpuscular Hemoglobin 28.9, Mean Corpuscular Hemoglobin Concent 33.6, Red Cell Distribution Width 15.1 H, Neutrophils (%) (Auto) 83.2 H, Lymphocytes (%) (Auto) 8.2 L, Monocytes (%) (Auto) 6.8 H, Eosinophils (%) (Auto) 0.1, Basophils (%) (Auto) 0.2, Neutrophils # (Auto) 11.3 H, Lymphocytes # (Auto) 1.1 L, Monocytes # (Auto) 0.9 H, Eosinophils # (Auto) 0.0, Basophils # (Auto) 0.0, Calcium Level 8.2 L Microbiology Microbiology 08/03/18 Blood Culture - Preliminary, Resulted No Growth after 48 hours. All Specime... 08/03/18 Blood Culture - Preliminary, Resulted No Growth after 48 hours. All Specime... SAMIRA REA MD August 06, 2018 11:14
[2018-08-06 14:00] VITALS: BP 112/59
--- NOTE | 2018-08-06 15:57 | CR ---
DATE OF CONSULTATION: 08/06/2018 REASON FOR CONSULTATION: Left hip pain. HISTORY OF PRESENT ILLNESS: He is a 68-year-old male who has been admitted for urinary retention and shortness of breath and generalized weakness, likely secondary to prostatic hypertrophy, who was recently discharged from an outside hospital as well, but he has had chronic long-standing back and left hip pain. He describes having injections in his hips in the distant past up in [place] and has also been cared for through the [facility]. He applies lidocaine patches to the outside part of the left hip. He has been doing that for several years. He gets them through the mail from the [place] and it does help his pain. His symptoms are pretty much stable, maybe a bit worse of late. He has had some back pain in the past and he has told me that there has been a compression fracture of L1 that he did not know about. [facility] Since he has been in the hospital his acute medical troubles are starting to improve. He says his breathing is better. I was asked to see him because on x-ray there is a large calcific radiopaque area just over the greater trochanter. He has a fairly extensive past medical history of chronic obstructive pulmonary disease (COPD) and on steroids, benign prostatic hypertrophy (BPH), posttraumatic stress disorder (PTSD), history of depression, tardive dyskinesia, history of urinary retention, compression fracture of L1 in the past, history of hypercholesterolemia, numbness and tingling in his upper extremities. HOME MEDICATIONS: - atorvastatin - vitamins - duloxetine - finasteride - gabapentin - ipratropium - latanoprost - omeprazole - paroxetine - prazosin - prednisone chronically - sildenafil - tamsulosin - trazodone ALLERGIES: TYLENOL, METHOCARBAMOL, TERAZOSIN, VARDENAFIL. PAST SURGICAL HISTORY: He had his left knee replaced by Dr. Chapman in [place]. He has had a cholecystectomy, tonsillectomy, injection in his back. He has had surgery on his left foot. He has also had injections into his hips in the past. SOCIAL HISTORY: He does smoke. He does not drink alcohol excessively. He is retired. 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 REVIEW OF SYSTEMS: Health survey is amended to the chart. The note from Dr. Tavarez was also reviewed. PHYSICAL EXAMINATION: He is a slender, bearded male lying in his bed. His vital signs show a blood pressure of 118/63, respiratory rate 18, oxygen saturation 97%, pulse 78, temperature 97.4. Examination of his lower extremities shows that he has good dorsiflexion, plantar flexion, strength of his feet. No obvious clonus noted. He has a scar on his left knee from a knee replacement surgery. He has excellent range of motion. There is some patellofemoral crepitance noted, but there is no swelling, redness, heat or irritability of his knee replacement. No evidence of any irritability with rotation, internally and externally at the left hip. There is some slight tenderness over the outside part of the left hip, over the greater trochanter. This is where he chronically feels the discomfort. It is not hot or red. There are no palpable masses noted. His imaging studies were reviewed. He had a MR scan of his back, as well as a hip x-ray. Lumbar spine MRI scan shows that there is a bit of a herniated disc off to the right at L5-1, it is mild. There is some discogenic narrowing with some grade listhesis at L4-5. No significant spinal cord compression or stenosis otherwise seen. X-rays of his left hip showed some mild chondrocalcinosis within the joint and there is a fairly sizable hazy appearing calcific density over the greater trochanter and going back to x-ray done in 2017 it appears stable, no change. Abdominal/pelvis CT scan showed no acute pathology. Chest x-ray showed no acute disease. LABORATORY STUDIES: On admission, he had a white count of 20.4, declined to 9.9 yesterday, and now it is 13.6 today with a hematocrit of 39.9 and platelet count of 161. Chemistries were normal. He had an elevated lactic acid initially that had normalized as of yesterday. Coagulation factors are normal. Urinalysis was unremarkable. Blood cultures with no growth. So we tried to put this altogether and this is likely a chronic calcific trochanteric bursitis. Therapy has started working with him. He is ambulating normally with a walker because his left foot turns inward ever since his knee replacement, he describes. I recommend conservative measures for this, have the therapist continue to work with him. He has had steroid shots in the past, which he says really did not help. It would be very unusual and rare to do surgical excision for this, but it is possible if his symptoms worsen, we may at some point consider a surgical excision, but I think that I would recommend exhausting conservative measures first, have the therapist continue to work with him, and we can follow him as an outpatient in our office and see how he responds to therapy first, possibly consider repeat steroid injections or continued physical therapy (PT). He seems to be getting better from his acute medical issues and we can follow him along as an outpatient in 2 to 3 weeks.
[2018-08-06] MEDS: LATANOPROST 0.005% OPHTH SOLN 2.5 ML OU SCH (20:13)
[2018-08-06] MEDS: PRAZOSIN 1 MG CAP PO SCH (20:15)
[2018-08-06] MEDS: traZODone 50 MG TAB PO SCH (20:16)
[2018-08-06 22:00] VITALS: BP 151/72
[2018-08-07] MEDS: IPRATROPIUM 0.5MG/ALBUTEROL 2.5MG INH SOL UD 3ML (DUONEB)(J7620) NEB SCH ×4 (01:17→20:11)
[2018-08-07 05:49] LABS: BASO % 0.3 % (0.0-1.0); EOS # 0.1 10^3/uL (0.0-0.50); EOS % 0.7 % (0.0-3.0); HEMATOCRIT 39.4 % (42.0-52.0); HEMOGLOBIN 13.3 g/dl (13.5-17.5); LYMPH # 1.6 10^3/uL (1.5-4.5); LYMPH % 13.9 % (24.0-44.0); MEAN CORPUSCULAR HEMOGLOBIN 29.1 pg (27.0-33.0); MEAN CORPUSCULAR HGB CONC 33.8 g/dl (32.0-36.5); MEAN CORPUSCULAR VOLUME 86.2 fl (80.0-96.0); MONO # 0.9 10^3/uL (0.0-0.8); MONO % 7.7 % (0.0-5.0); PLATELET COUNT, AUTOMATED 157 10^3/uL (150-450); RED BLOOD COUNT 4.57 10^6/uL (4.30-6.10); WHITE BLOOD COUNT 11.8 10^3/uL (4.0-10.0)
[2018-08-07 06:00] VITALS: BP 144/66
[2018-08-07 06:43] LABS: BLOOD UREA NITROGEN 14 MG/DL (7-18); CALCIUM LEVEL 8.6 MG/DL (8.8-10.2); CARBON DIOXIDE LEVEL 30 MEQ/L (21-32); CHLORIDE LEVEL 104 MEQ/L (98-107); CREATININE FOR GFR 0.91 MG/DL (0.70-1.30); GLOMERULAR FILTRATION RATE > 60.0 (>49); GLUCOSE, FASTING 117 MG/DL (70-100); POTASSIUM SERUM 3.6 MEQ/L (3.5-5.1); SODIUM LEVEL 138 MEQ/L (136-145)
[2018-08-07] MEDS: BUDESONIDE 0.5 MG/2 ML INHALATION SUSPENSION INH SCH ×2 (08:15→20:11)
[2018-08-07] MEDS: FINASTERIDE 5 MG TAB PO SCH (09:16)
[2018-08-07] MEDS: DULoxetine 30 MG CAP (CYMBALTA) PO SCH (09:16)
[2018-08-07] MEDS: OMEPRAZOLE 20 MG CAP PO SCH (09:17)
[2018-08-07] MEDS: TAMSULOSIN 0.4 MG CAP PO SCH ×2 (09:17→21:59)
[2018-08-07] MEDS: predniSONE 20 MG TAB PO SCH (09:17)
[2018-08-07] MEDS: PARoxetine 20 MG TAB PO SCH (09:17)
[2018-08-07] MEDS: ATORVASTATIN 20 MG TAB PO SCH (09:17)
[2018-08-07] MEDS: ENOXAPARIN 40 MG/0.4 ML SYRINGE (J1650) SC SCH (09:17)
[2018-08-07] MEDS: GABAPENTIN 100 MG CAP PO SCH ×2 (09:17→22:00)
--- NOTE | 2018-08-07 11:05 | IPNPDOC ---
Subjective Date Seen The patient was seen on 08/07/18. Subjective Chief Complaint/HPI Continues to complain of SOB and dry hacking cough. He say s he is walking better with the walker. He is participating in PT. Objective Physical Examination General Exam: Positive: Alert, Cooperative, No Acute Distress Eye Exam: Positive: Conjunctiva & lids normal ENT Exam: Positive: Atraumatic, Mucous membr. moist/pink, Tongue Midline, Other ENT (abnormal movement of tongue) Neck Exam: Positive: Supple Chest Exam: Positive: Rales (at both the bases), Rhonchi, Wheezing, Diminished Heart Exam: Positive: Tachycardic, Regular Rhythm, Normal S1, Normal S2; Negative: Rate Normal, Gallops, Murmurs, Rubs Telemetry: Positive: Sinus, Tachycardia Abdomen Exam: Positive: Normal bowel sounds, Soft, Other (obese) Extremity Exam: Negative: Clubbing, Cyanosis, Edema Skin Exam: Positive: Nl turgor and temperature; Negative: Breakdown, Lesion Neuro Exam: Positive: Strength at 5/5 X4 ext, Normal Tone, Reflexes 2+, Other (DTRs of the knee and ankle exacerbated. planters downgoing. ) Psych Exam: Positive: Anxiety, Oriented x 3 Assessment /Plan Assessment 68 year old male with PMH of COPD on chronic steroids, BPH, PTSD, depression, tardive dyskinesia, urinary retention, Chronic compression fracture of L1 vertebra for which he gets injections , tremors, chronic back and hip pain, gait instability was recented hospitalized at [facility] from to July 31 where he had gone for inability to urinate. He was managed for urinary retention and COPD exacerbation. He had gone for a post hospitalization follow up with his PMD Dr Jaimes at the [place] today and was noted to be extremely SOB, with difficulty in completing sentences, difficulty in ambulation ans so was sent to our ED for evaluation. In the ED he was found to be SOB , tachypnic but not hypoxic. He was having extreme difficulty with ambulation limited by SOB and hip pain. He also was complaining of lower abdominal pain . CT abdomen pelvis was suggestive of urinary retention. He had straight cath done but again could not void so a salcido was placed for acute urinary retention. Lab work showed a elevated WBC of 20k. CXR was clear for any acute disease. he was admitted for Advanced COPD with acute urinary retention, gait instability and difficulty in ambulation. Patient lives alone and has been having difficulty with his ADLS due to extreme weakness and SOB. His ex was helping him but he feels that he may be unable to manage by himself at home anymore. Acute urinary retention recurrent Most probably due to BPH and may be ipratropium too MRI negative for any cord compression had a salcido placed in the ED continue flomax, finasteride. will go home with salcido and referral to Urology as outpatient. Leucocytosis probably due to steroids and stress demargination Had resolved now arising today as steroid was increased procalcitonin not elevated. CXR clear, Ua clear, Abdomen ct no acute abnormality received zosyn in ED will hold of on further doses. COPD with emphysema with mild exacerbation will increase steroids. will continue with duonebs, budesonide Lacticacidosis present on admission due to increased work of breathing. part of it could also be related to too frequent use of albuterol nebs. No signs of infection was present. PTSD continue prazosin, trazodone Chronic back pain and left hip pain gets injections at the back continue gabapentin, cymbalta. Hip xray shows left calcific trochanteric bursitis. Follow up Ortho outpateint continue PT. Tremors could be medication related. Tardive dyskinesia of the tongue and lips noted possibly due to psychiatric medications Hyperlipidemia continue statin Gait instability continue PT DVT prophylaxis ordered. Dispo: to rehab Plan/VTE VTE Prophylaxis Ordered?: Yes VS, I&O, 24H, Fishbone Vital Signs/I&O Vital Signs Date Time Temp Pulse Resp B/P (MAP) Pulse Ox O2 Delivery O2 Flow Rate FiO2 08/07/18 06:00 97.3 85 15 144/66 (92) 94 08/03/18 12:25 Room Air I&O- Last 24 Hours up to 6 AM 08/07/18 06:00 Intake Total 2850 ml Output Total 2300 ml Balance 550 ml Laboratory Data 24H LABS Laboratory Tests 2 08/06/18 14:21: Bedside Glucose (Misc Panel) 151H 08/07/18 05:29: Immature Granulocyte % (Auto) 1.4, White Blood Count 11.8H, Red Blood Count 4.57, Hemoglobin 13.3L, Hematocrit 39.4L, Mean Corpuscular Volume 86.2, Mean C orpuscular Hemoglobin 29.1, Mean Corpuscular Hemoglobin Concent 33.8, Red Cell Distribution Width 14.9H, Platelet Count 157, Neutrophils (%) (Auto) 76.0H, Lymphocytes (%) (Auto) 13.9L, Monocytes (%) (Auto) 7.7H, Eosinophils (%) (Auto) 0.7, Basophils (%) (Auto) 0.3, Neutrophils # (Auto) 9.0H, Lymphocytes # (Auto) 1.6, Monocytes # (Auto) 0.9H, Eosinophils # (Auto) 0.1, Basophils # (Auto) 0.0, Nucleated Red Blood Cells % (auto) 0.0, Anion Gap 4L, Glomerular Filtration Rate > 60.0, Blood Urea Nitrogen 14, Creatinine 0.91, Sodium Level 138, Potassium Level 3.6, Chloride Level 104, Carbon Dioxide Level 30, Calcium Level 8.6L CBC/BMP Laboratory Tests 08/07/18 05:29 Red Blood Count 4.57, Mean Corpuscular Volume 86.2, Mean Corpuscular Hemoglobin 29.1, Mean Corpuscular Hemoglobin Concent 33.8, Red Cell Distribution Width 14.9 H, Neutrophils (%) (Auto) 76.0 H, Lymphocytes (%) (Auto) 13.9 L, Monocytes (%) (Auto) 7.7 H, Eosinophils (%) (Auto) 0.7, Basophils (%) (Auto) 0.3, Neutrophils # (Auto) 9.0 H, Lymphocytes # (Auto) 1.6, Monocytes # (Auto) 0.9 H, Eosinophils # (Auto) 0.1, Basophils # (Auto) 0.0, Calcium Level 8.6 L Microbiology Microbiology 08/03/18 Blood Culture - Preliminary, Resulted No Growth after 72 hours. All specime... 08/03/18 Blood Culture - Preliminary, Resulted No Growth after 72 hours. All specime... SAMIRA REA MD August 07, 2018 11:05
[2018-08-07 14:00] VITALS: BP 144/67
[2018-08-07] MEDS: traZODone 50 MG TAB PO SCH (21:59)
[2018-08-07 22:00] VITALS: BP 124/68
[2018-08-07] MEDS: LATANOPROST 0.005% OPHTH SOLN 2.5 ML OU SCH (22:00)
[2018-08-07] MEDS: PRAZOSIN 1 MG CAP PO SCH (22:00)
[2018-08-08] MEDS: IPRATROPIUM 0.5MG/ALBUTEROL 2.5MG INH SOL UD 3ML (DUONEB)(J7620) NEB SCH ×2 (01:39→07:14)
[2018-08-08 06:00] VITALS: BP 138/70
[2018-08-08 06:29] LABS: BASO % 0.3 % (0.0-1.0); EOS # 0.1 10^3/uL (0.0-0.50); EOS % 0.5 % (0.0-3.0); HEMATOCRIT 40.6 % (42.0-52.0); HEMOGLOBIN 13.7 g/dl (13.5-17.5); LYMPH # 1.6 10^3/uL (1.5-4.5); LYMPH % 14.7 % (24.0-44.0); MEAN CORPUSCULAR HEMOGLOBIN 29.7 pg (27.0-33.0); MEAN CORPUSCULAR HGB CONC 33.7 g/dl (32.0-36.5); MEAN CORPUSCULAR VOLUME 88.1 fl (80.0-96.0); MONO # 0.9 10^3/uL (0.0-0.8); MONO % 8.5 % (0.0-5.0); NEUTROPHILS % 74.7 % (36.0-66.0); PLATELET COUNT, AUTOMATED 149 10^3/uL (150-450); RED BLOOD COUNT 4.61 10^6/uL (4.30-6.10); WHITE BLOOD COUNT 10.7 10^3/uL (4.0-10.0)
[2018-08-08 06:53] LABS: BLOOD UREA NITROGEN 13 MG/DL (7-18); CALCIUM LEVEL 8.3 MG/DL (8.8-10.2); CARBON DIOXIDE LEVEL 30 MEQ/L (21-32); CHLORIDE LEVEL 102 MEQ/L (98-107); GLOMERULAR FILTRATION RATE > 60.0 (>49); GLUCOSE, FASTING 97 MG/DL (70-100); POTASSIUM SERUM 3.5 MEQ/L (3.5-5.1); SODIUM LEVEL 137 MEQ/L (136-145)
[2018-08-08] MEDS: BUDESONIDE 0.5 MG/2 ML INHALATION SUSPENSION INH SCH (07:13)
[2018-08-08] MEDS: DULoxetine 30 MG CAP (CYMBALTA) PO SCH (09:35)
[2018-08-08] MEDS: GABAPENTIN 100 MG CAP PO SCH ×2 (09:35→21:20)
[2018-08-08] MEDS: predniSONE 20 MG TAB PO SCH (09:35)
[2018-08-08] MEDS: ENOXAPARIN 40 MG/0.4 ML SYRINGE (J1650) SC SCH (09:35)
[2018-08-08] MEDS: ATORVASTATIN 20 MG TAB PO SCH (09:36)
[2018-08-08] MEDS: TAMSULOSIN 0.4 MG CAP PO SCH ×2 (09:36→21:19)
[2018-08-08] MEDS: FINASTERIDE 5 MG TAB PO SCH (09:36)
[2018-08-08] MEDS: traMADol 50 MG TAB PO PRN ×2 (09:36→17:15)
[2018-08-08] MEDS: PARoxetine 20 MG TAB PO SCH (09:36)
[2018-08-08] MEDS: OMEPRAZOLE 20 MG CAP PO SCH (09:37)
--- NOTE | 2018-08-08 10:09 | IPNPDOC ---
Subjective Date Seen The patient was seen on 08/08/18. Subjective Chief Complaint/HPI Sob, weakness, inability to urinate. Events since last encounter Today patient complaining of soreness in his penile area and says the catheter is really irritating it and wanted to try and get it out. he says his breathing is unchanged. he continues to have dry hacking cough but not any worse than before Objective Physical Examination General Exam: Positive: Alert, Cooperative, No Acute Distress Eye Exam: Positive: Conjunctiva & lids normal ENT Exam: Positive: Atraumatic, Mucous membr. moist/pink, Tongue Midline, Other ENT (abnormal movement of tongue) Neck Exam: Positive: Supple Chest Exam: Positive: Rales (at both the bases), Rhonchi, Wheezing, Diminished Heart Exam: Positive: Tachycardic, Regular Rhythm, Normal S1, Normal S2; Negative: Rate Normal, Gallops, Murmurs, Rubs Telemetry: Positive: Sinus, Tachycardia Abdomen Exam: Positive: Normal bowel sounds, Soft, Other (obese) Extremity Exam: Negative: Clubbing, Cyanosis, Edema Skin Exam: Positive: Nl turgor and temperature; Negative: Breakdown, Lesion Neuro Exam: Positive: Strength at 5/5 X4 ext, Normal Tone, Reflexes 2+, Other (DTRs of the knee and ankle exacerbated. planters downgoing. ) Psych Exam: Positive: Anxiety, Oriented x 3 Assessment /Plan Assessment 68 year old male with PMH of COPD on chronic steroids, BPH, PTSD, depression, tardive dyskinesia, urinary retention, Chronic compression fracture of L1 vertebra for which he gets injections , tremors, chronic back and hip pain, gait instability was recented hospitalized at [facility] from to July 31 where he had gone for inability to urinate. He was managed for urinary retention and COPD exacerbation. He had gone for a post hospitalization follow up with his PMD Dr Jaimes at the [place] today and was noted to be extremely SOB, with difficulty in completing sentences, difficulty in ambulation ans so was sent to our ED for evaluation. In the ED he was found to be SOB , tachypnic but not hypoxic. He was having extreme difficulty with ambulation limited by SOB and hip pain. He also was complaining of lower abdominal pain . CT abdomen pelvis was suggestive of urinary retention. He had straight cath done but again could not void so a salcido was placed for acute urinary retention. Lab work showed a elevated WBC of 20k. CXR was clear for any acute disease. he was admitted for Advanced COPD with acute urinary retention, gait instability and difficulty in ambulation. Patient lives alone and has been having difficulty with his ADLS due to extreme weakness and SOB. His ex was helping him but he feels that he may be unable to manage by himself at home anymore. COPD with emphysema with mild exacerbation start tapering steroids. will start symbicort, spiriva, albuterol prn. Acute urinary retention recurrent Most probably due to BPH and may be ipratropium too MRI negative for any cord compression had a salcido placed in the ED on flomax, finasteride. will give a trial of void if fails will go home with salcido and referral to Urology as outpatient. Leucocytosis probably due to steroids and stress demargination Had resolved now arising today as steroid was increased procalcitonin not elevated. CXR clear, Ua clear, Abdomen ct no acute abnormality received zosyn in ED will hold of on further doses. Lacticacidosis present on admission due to increased work of breathing. part of it could also be related to too frequent use of albuterol nebs. No signs of infection was present. PTSD continue prazosin, trazodone Chronic back pain and left hip pain gets injections at the back continue gabapentin, cymbalta. Hip xray shows left calcific trochanteric bursitis. Follow up Ortho outpateint continue PT. Tremors could be medication related. Tardive dyskinesia of the tongue and lips noted possibly due to psychiatric medications Hyperlipidemia continue statin Gait instability continue PT DVT prophylaxis ordered. Dispo: to rehab Plan/VTE VTE Prophylaxis Ordered?: Yes VS, I&O, 24H, Fishbone Vital Signs/I&O Vital Signs Date Time Temp Pulse Resp B/P (MAP) Pulse Ox O2 Delivery O2 Flow Rate FiO2 08/08/18 09:36 20 08/08/18 06:00 98.0 82 138/70 (92) 93 08/03/18 12:25 Room Air I&O- Last 24 Hours up to 6 AM 08/08/18 06:00 Intake Total 1260 ml Output Total 2800 ml Balance -1540 ml Laboratory Data 24H LABS Laboratory Tests 2 08/08/18 05:48: Immature Granulocyte % (Auto) 1.3, White Blood Count 10.7H, Red Blood Count 4.61, Hemoglobin 13.7, Hematocrit 40.6L, Mean Corpuscular Volume 88.1, Mean Jessica uscular Hemoglobin 29.7, Mean Corpuscular Hemoglobin Concent 33.7, Red Cell Distribution Width 15.1H, Platelet Count 149L, Neutrophils (%) (Auto) 74.7H, Lymphocytes (%) (Auto) 14.7L, Monocytes (%) (Auto) 8.5H, Eosinophils (%) (Auto) 0.5, Basophils (%) (Auto) 0.3, Neutrophils # (Auto) 8.0H, Lymphocytes # (Auto) 1.6, Monocytes # (Auto) 0.9H, Eosinophils # (Auto) 0.1, Basophils # (Auto) 0.0, Nucleated Red Blood Cells % (auto) 0.0, Anion Gap 5L, Glomerular Filtration Rate > 60.0, Blood Urea Nitrogen 13, Creatinine 0.90, Sodium Level 137, Potassium Level 3.5, Chloride Level 102, Carbon Dioxide Level 30, Calcium Level 8.3L CBC/BMP Laboratory Tests 08/08/18 05:48 Red Blood Count 4.61, Mean Corpuscular Volume 88.1, Mean Corpuscular Hemoglobin 29.7, Mean Corpuscular Hemoglobin Concent 33.7, Red Cell Distribution Width 15.1 H, Neutrophils (%) (Auto) 74.7 H, Lymphocytes (%) (Auto) 14.7 L, Monocytes (%) (Auto) 8.5 H, Eosinophils (%) (Auto) 0.5, Basophils (%) (Auto) 0.3, Neutrophils # (Auto) 8.0 H, Lymphocytes # (Auto) 1.6, Monocytes # (Auto) 0.9 H, Eosinophils # (Auto) 0.1, Basophils # (Auto) 0.0, Calcium Level 8.3 L Microbiology Microbiology 08/03/18 Blood Culture - Preliminary, Resulted No Growth after 72 hours. All specime... 08/03/18 Blood Culture - Preliminary, Resulted No Growth after 72 hours. All specime... SAMIRA REA MD August 08, 2018 10:09
[2018-08-08] MEDS: TIOTROPIUM INHALER/CAPSULE (SPIRIVA) INH SCH (11:14)
[2018-08-08] MEDS: SYMBICORT 80/4.5MCG INHALER 6GM INH SCH ×2 (11:14→19:34)
[2018-08-08] MEDS: MOM 30ML SUSPENSION UDC PO SCH (11:34)
[2018-08-08] MEDS: SENOKOT S TAB PO SCH ×2 (11:34→21:20)
[2018-08-08 14:00] VITALS: BP 136/72
[2018-08-08] MEDS: ALBUTEROL SULFATE 2.5 MG/0.5 ML INH NEB SOLN NEB PRN (16:40)
[2018-08-08] MEDS: LATANOPROST 0.005% OPHTH SOLN 2.5 ML OU SCH (21:00)
[2018-08-08] MEDS: traZODone 50 MG TAB PO SCH (21:00)
[2018-08-08] MEDS: PRAZOSIN 1 MG CAP PO SCH (21:20)
[2018-08-08 22:00] VITALS: BP 129/76
[2018-08-09] MEDS: ALBUTEROL SULFATE 2.5 MG/0.5 ML INH NEB SOLN NEB PRN (00:32)
[2018-08-09 05:59] LABS: BASO % 0.2 % (0.0-1.0); EOS % 0.3 % (0.0-3.0); HEMATOCRIT 42.1 % (42.0-52.0); LYMPH # 1.3 10^3/uL (1.5-4.5); LYMPH % 12.7 % (24.0-44.0); MEAN CORPUSCULAR HEMOGLOBIN 29.4 pg (27.0-33.0); MEAN CORPUSCULAR HGB CONC 33.3 g/dl (32.0-36.5); MEAN CORPUSCULAR VOLUME 88.4 fl (80.0-96.0); MONO # 0.9 10^3/uL (0.0-0.8); MONO % 8.1 % (0.0-5.0); NEUTROPHILS # 8.2 10^3/uL (1.8-7.7); NEUTROPHILS % 77.6 % (36.0-66.0); PLATELET COUNT, AUTOMATED 156 10^3/uL (150-450); RED BLOOD COUNT 4.76 10^6/uL (4.30-6.10); WHITE BLOOD COUNT 10.6 10^3/uL (4.0-10.0)
[2018-08-09 06:00] VITALS: BP 137/79
[2018-08-09 06:26] LABS: BLOOD UREA NITROGEN 16 MG/DL (7-18); CALCIUM LEVEL 8.8 MG/DL (8.8-10.2); CARBON DIOXIDE LEVEL 28 MEQ/L (21-32); CHLORIDE LEVEL 102 MEQ/L (98-107); CREATININE FOR GFR 1.04 MG/DL (0.70-1.30); GLOMERULAR FILTRATION RATE > 60.0 (>49); GLUCOSE, FASTING 102 MG/DL (70-100); POTASSIUM SERUM 3.8 MEQ/L (3.5-5.1); SODIUM LEVEL 137 MEQ/L (136-145)
[2018-08-09] MEDS: TIOTROPIUM INHALER/CAPSULE (SPIRIVA) INH SCH (08:20)
[2018-08-09] MEDS: SYMBICORT 80/4.5MCG INHALER 6GM INH SCH ×2 (08:20→20:31)
[2018-08-09] MEDS: MOM 30ML SUSPENSION UDC PO SCH (09:30)
[2018-08-09] MEDS: ATORVASTATIN 20 MG TAB PO SCH (09:31)
[2018-08-09] MEDS: predniSONE 20 MG TAB PO SCH (09:31)
[2018-08-09] MEDS: ENOXAPARIN 40 MG/0.4 ML SYRINGE (J1650) SC SCH (09:31)
[2018-08-09] MEDS: TAMSULOSIN 0.4 MG CAP PO SCH ×2 (09:31→21:46)
[2018-08-09] MEDS: DULoxetine 30 MG CAP (CYMBALTA) PO SCH (09:31)
[2018-08-09] MEDS: SENOKOT S TAB PO SCH ×2 (09:31→21:46)
[2018-08-09] MEDS: OMEPRAZOLE 20 MG CAP PO SCH (09:32)
[2018-08-09] MEDS: GABAPENTIN 100 MG CAP PO SCH ×2 (09:32→21:46)
[2018-08-09] MEDS: PARoxetine 20 MG TAB PO SCH (09:32)
[2018-08-09] MEDS: FINASTERIDE 5 MG TAB PO SCH (09:32)
[2018-08-09] MEDS: traMADol 50 MG TAB PO PRN (09:32)
[2018-08-09] MEDS ORDERED: IPRATROPIUM 0.5MG/ALBUTEROL 2.5MG INH SOL UD 3ML (DUONEB)(J7620) NEB PRN (11:00)
--- NOTE | 2018-08-09 11:01 | IPNPDOC ---
Subjective Date Seen The patient was seen on 08/09/18. Objective Physical Examination General Exam: Positive: Alert, Cooperative, No Acute Distress Eye Exam: Positive: Conjunctiva & lids normal ENT Exam: Positive: Atraumatic, Mucous membr. moist/pink, Tongue Midline, Other ENT (abnormal movement of tongue) Neck Exam: Positive: Supple Chest Exam: Positive: Rales (at both the bases), Rhonchi, Wheezing, Diminished Heart Exam: Positive: Tachycardic, Regular Rhythm, Normal S1, Normal S2; Negative: Rate Normal, Gallops, Murmurs, Rubs Telemetry: Positive: Sinus, Tachycardia Abdomen Exam: Positive: Normal bowel sounds, Soft, Other (obese) Extremity Exam: Negative: Clubbing, Cyanosis, Edema Skin Exam: Positive: Nl turgor and temperature; Negative: Breakdown, Lesion Neuro Exam: Positive: Strength at 5/5 X4 ext, Normal Tone, Reflexes 2+, Other (DTRs of the knee and ankle exacerbated. planters downgoing. ) Psych Exam: Positive: Anxiety, Oriented x 3 Assessment /Plan Assessment 68 year old male with PMH of COPD on chronic steroids, BPH, PTSD, depression, tardive dyskinesia, urinary retention, Chronic compression fracture of L1 vert ebra for which he gets injections , tremors, chronic back and hip pain, gait instability was recented hospitalized at [facility] from to July 31 where he had gone for inability to urinate. He was managed for urinary retention and COPD exacerbation. He had gone for a post hospitalization follow up with his PMD Dr Jaimes at the [place] today and was noted to be extremely SOB, with difficulty in completing sentences, difficulty in ambulation ans so was sent to our ED for evaluation. In the ED he was found to be SOB , tachypnic but not hypoxic. He was having extreme difficulty with ambulation limited by SOB and hip pain. He also was complaining of lower abdominal pain . CT abdomen pelvis was suggestive of urinary retention. He had straight cath done but again could not void so a salcido was placed for acute urinary retention. Lab work showed a elevated WBC of 20k. CXR was clear for any acute disease. he was admitted for Advanced COPD with acute urinary retention, gait instability and difficulty in ambulation. Patient lives alone and has been having difficulty with his ADLS due to extreme weakness and SOB. His ex was helping him but he feels that he may be unable to manage by himself at home anymore. COPD with emphysema with mild exacerbation start tapering steroids. will start symbicort, spiriva, albuterol prn. Acute urinary retention recurrent Most probably due to BPH and may be ipratropium too MRI negative for any cord compression had a salcido placed in the ED on flomax, finasteride. Passed trial of void yesterday now off salcido Will try to keep ipratropium to minimum as this can cause urinary retention Lacticacidosis present on admission due to increased work of breathing. part of it could also be related to too frequent use of albuterol nebs. No signs of infection was present. Leucocytosis probably due to steroids and stress demargination procalcitonin not elevated. CXR clear, Ua clear, Abdomen ct no acute abnormality PTSD continue prazosin, trazodone Chronic back pain and left hip pain gets injections at the back continue gabapentin, cymbalta. Hip xray shows left calcific trochanteric bursitis. Follow up Ortho outpateint continue PT. Tremors could be medication related. Tardive dyskinesia of the tongue and lips noted possibly due to psychiatric medications Hyperlipidemia continue statin Gait instability continue PT DVT prophylaxis ordered. Dispo: to rehab Plan/VTE VTE Prophylaxis Ordered?: Yes VS, I&O, 24H, [place] Vital Signs/I&O Vital Signs Date Time Temp Pulse Resp B/P (MAP) Pulse Ox O2 Delivery O2 Flow Rate FiO2 08/09/18 10:02 18 08/09/18 06:00 98.1 82 137/79 (98) 94 08/03/18 12:25 Room Air I&O- Last 24 Hours up to 6 AM 08/09/18 06:00 Intake Total 2375 ml Output Total 2150 ml Balance 225 ml Laboratory Data 24H LABS Laboratory Tests 2 08/09/18 05:29: Immature Granulocyte % (Auto) 1.1, White Blood Count 10.6H, Red Blood Count 4.76, Hemoglobin 14.0, Hematocrit 42.1, Mean Corpuscular Volume 88.4, Mean Corpuscular Hemoglobin 29.4, Mean Corpuscular Hemoglobin Concent 33.3, Red Cell Distribution Width 15.2H, Platelet Count 156, Neutrophils (%) (Auto) 77.6H, Lymphocytes (%) (Auto) 12.7L, Monocytes (%) (Auto) 8.1H, Eosinophils (%) (Auto) 0.3, Basophils (%) (Auto) 0.2, Neutrophils # (Auto) 8.2H, Lymphocytes # (Auto) 1.3L, Monocytes # (Auto) 0.9H, Eosinophils # (Auto) 0.0, Basophils # (Auto) 0.0, Nucleated Red Blood Cells % (auto) 0.0, Anion Gap 7L, Glomerular Filtration Rate > 60.0, Blood Urea Nitrogen 16, Creatinine 1.04, Sodium Level 137, Potassium Level 3.8, Chloride Level 102, Carbon Dioxide Level 28, Calcium Level 8.8 CBC/BMP Laboratory Tests 08/09/18 05:29 Red Blood Count 4.76, Mean Corpuscular Volume 88.4, Mean Corpuscular Hemoglobin 29.4, Mean Corpuscular Hemoglobin Concent 33.3, Red Cell Distribution Width 15.2 H, Neutrophils (%) (Auto) 77.6 H, Lymphocytes (%) (Auto) 12.7 L, Monocytes (%) (Auto) 8.1 H, Eosinophils (%) (Auto) 0.3, Basophils (%) (Auto) 0.2, Neutrophils # (Auto) 8.2 H, Lymphocytes # (Auto) 1.3 L, Monocytes # (Auto) 0.9 H, Eosinophils # (Auto) 0.0, Basophils # (Auto) 0.0, Calcium Level 8.8 Microbiology Microbiology 08/03/18 Blood Culture - Final, Complete NO GROWTH AFTER 5 DAYS 08/03/18 Blood Culture - Final, Complete NO GROWTH AFTER 5 DAYS SAMIRA REA MD August 09, 2018 11:01
[2018-08-09 14:00] VITALS: BP 121/71
[2018-08-09] MEDS: DICLOFENAC EPOLAMINE 1.3 % PATCH TOP SCH ×2 (15:40→21:46)
[2018-08-09] MEDS: ALBUTEROL SULFATE 2.5 MG/0.5 ML INH NEB SOLN NEB SCH (15:58)
[2018-08-09 21:45] VITALS: BP 121/71
[2018-08-09] MEDS: PRAZOSIN 1 MG CAP PO SCH (21:45)
[2018-08-09] MEDS: traZODone 50 MG TAB PO SCH (21:45)
[2018-08-09] MEDS: LATANOPROST 0.005% OPHTH SOLN 2.5 ML OU SCH (21:46)
[2018-08-09 22:00] VITALS: BP 121/58
[2018-08-10] MEDS: ALBUTEROL SULFATE 2.5 MG/0.5 ML INH NEB SOLN NEB SCH ×2 (00:04→07:35)
[2018-08-10 06:00] VITALS: BP 120/67
[2018-08-10 06:30] LABS: BASO % 0.2 % (0.0-1.0); EOS # 0.1 10^3/uL (0.0-0.50); EOS % 0.5 % (0.0-3.0); HEMATOCRIT 41.4 % (42.0-52.0); HEMOGLOBIN 13.8 g/dl (13.5-17.5); LYMPH # 2.3 10^3/uL (1.5-4.5); LYMPH % 17.5 % (24.0-44.0); MEAN CORPUSCULAR HEMOGLOBIN 28.9 pg (27.0-33.0); MEAN CORPUSCULAR HGB CONC 33.3 g/dl (32.0-36.5); MEAN CORPUSCULAR VOLUME 86.8 fl (80.0-96.0); MONO # 0.9 10^3/uL (0.0-0.8); NEUTROPHILS # 9.5 10^3/uL (1.8-7.7); NEUTROPHILS % 74.1 % (36.0-66.0); PLATELET COUNT, AUTOMATED 168 10^3/uL (150-450); RED BLOOD COUNT 4.77 10^6/uL (4.30-6.10); WHITE BLOOD COUNT 12.9 10^3/uL (4.0-10.0)
[2018-08-10 06:50] LABS: BLOOD UREA NITROGEN 19 MG/DL (7-18); CALCIUM LEVEL 8.8 MG/DL (8.8-10.2); CARBON DIOXIDE LEVEL 28 MEQ/L (21-32); CHLORIDE LEVEL 104 MEQ/L (98-107); CREATININE FOR GFR 0.97 MG/DL (0.70-1.30); GLOMERULAR FILTRATION RATE > 60.0 (>49); GLUCOSE, FASTING 84 MG/DL (70-100); POTASSIUM SERUM 4.2 MEQ/L (3.5-5.1); SODIUM LEVEL 139 MEQ/L (136-145)
[2018-08-10] MEDS: SYMBICORT 80/4.5MCG INHALER 6GM INH SCH (07:35)
[2018-08-10] MEDS: TIOTROPIUM INHALER/CAPSULE (SPIRIVA) INH SCH (07:36)
[2018-08-10] MEDS: MOM 30ML SUSPENSION UDC PO SCH (08:57)
[2018-08-10] MEDS: ATORVASTATIN 20 MG TAB PO SCH (08:58)
[2018-08-10] MEDS: GABAPENTIN 100 MG CAP PO SCH (08:58)
[2018-08-10] MEDS: TAMSULOSIN 0.4 MG CAP PO SCH (08:58)
[2018-08-10] MEDS: FINASTERIDE 5 MG TAB PO SCH (08:58)
[2018-08-10] MEDS: ENOXAPARIN 40 MG/0.4 ML SYRINGE (J1650) SC SCH (08:58)
[2018-08-10] MEDS: DULoxetine 30 MG CAP (CYMBALTA) PO SCH (08:58)
[2018-08-10] MEDS: predniSONE 20 MG TAB PO SCH (08:58)
[2018-08-10] MEDS: SENOKOT S TAB PO SCH (08:59)
[2018-08-10] MEDS: OMEPRAZOLE 20 MG CAP PO SCH (08:59)
[2018-08-10] MEDS: PARoxetine 20 MG TAB PO SCH (08:59)
[2018-08-10] MEDS: traMADol 50 MG TAB PO PRN (08:59)
[2018-08-10] MEDS: DICLOFENAC EPOLAMINE 1.3 % PATCH TOP SCH (09:00)
[2018-08-10] MEDS ORDERED: BISACODYL 10 MG SUPP PR ONE (11:00)
[2018-08-10] MEDS ORDERED: FLEET ENEMA PR PRN (11:00)
[2018-08-10] MEDS ORDERED: MAGNESIUM CITRATE 300 ML BTL PO ONE (11:00)
[2018-08-10] MEDS ORDERED: SYMB80INH INH (11:20)
[2018-08-10] MEDS ORDERED: PRED10TA2 PO (11:20)
[2018-08-10] MEDS ORDERED: TRAM50TA2 PO (11:20)
[2018-08-10] MEDS ORDERED: ALB2.5NEB NEB (11:20)
[2018-08-10] MEDS ORDERED: DICL13PA TOP (11:20)
[2018-08-10] MEDS ORDERED: TIOT18INH INH (11:20)
--- NOTE | 2018-08-10 23:27 | DS.PDOC ---
Discharge Summary General Date of Admission August 03, 2018 at 16:15 Date of Discharge 08/10/18 Discharge Summary PROCEDURES PERFORMED DURING STAY: [None]. DISCHARGE DIAGNOSES: Acute urinary retention possibly related to ipratropium BPH COPD exacerbation Left greater trochanteric calcific bursitis with chronic pain Low back pain chronic PTSD Tremors Tardive dyskinesia Gait instability Hyperlipidemia Lacticacidosis COMPLICATIONS/CHIEF COMPLAINT: Acute Urinary Retention,Copd Exacerbation. HISTORY OF PRESENT ILLNESS: See History and physical HOSPITAL COURSE: 68 year old male with PMH of COPD on chronic steroids, BPH, PTSD, depression, tardive dyskinesia, urinary retention, Chronic compression fracture of L1 vertebra ( asper patient)for which he gets injections , tremors, chronic back and hip pain, gait instability was recently hospitalized at [facility] from july 27 to July 31 where he had gone for inability to urinate. He was managed for urinary retention and COPD exacerbation. He had gone for a post hospitalization follow up with his PMD Dr Jaimes at the [facility] and was noted to be extremely SOB, with difficulty in completing sentences, difficulty in ambulation ans so was sent to our ED for evaluation. In the ED he was found to be SOB , tachypneic but not hypoxic. He was having extreme difficulty with ambulation limited by SOB and hip pain. He also was complaining of lower abdominal pain . CT abdomen pelvis was suggestive of urinary retention. He had straight cath done but again could not void so a salcido was placed for acute urinary retention. Lab work showed a elevated WBC of 20k. CXR was clear for any acute disease. He was admitted for Advanced COPD with acute urinary retention, gait instability and difficulty in ambulation. Patient lives alone and has been having difficulty with his ADLS due to extreme weakness and SOB. His ex was helping him but he feels that he may be unable to manage by himself at home anymore. Acute urinary retention recurrent Most probably due to BPH and may be ipratropium too MRI negative for any cord compression had a salcido placed in the ED on flomax, finasteride. Passed trial of void now off salcido Will try to keep ipratropium to minimum as this can cause urinary retention Leucocytosis probably due to steroids and stress demargination procalcitonin not elevated. CXR clear, Ua clear, Abdomen ct no acute abnormality COPD with emphysema with mild exacerbation start tapering steroids. symbicort, spiriva, albuterol prn. Lacticacidosis present on admission due to increased work of breathing. part of it could also be related to too frequent use of albuterol nebs. No signs of infection was present. PTSD continue prazosin, trazodone Chronic back pain and left hip pain gets injections at the back he gives history of vertebral fracture but MRI did not show vertebral fracture There is a foraminal narrowing in the Right L5-S1 recess continue gabapentin, cymbalta. Flector patch Hip xray shows left calcific trochanteric bursitis. Follow up Ortho outpatient continue PT. Tremors could be medication related. Tardive dyskinesia of the tongue and lips noted possibly due to psychiatric medications Hyperlipidemia continue statin Gait instability continue PT DISCHARGE MEDICATIONS: Please see below. ALLERGIES: Please see below. PHYSICAL EXAMINATION ON DISCHARGE: VITAL SIGNS: Please see below. General Exam: Positive: Alert, Cooperative, No Acute Distress Eye Exam: Positive: Conjunctiva & lids normal ENT Exam: Positive: Atraumatic, Mucous membr. moist/pink, Tongue Midline, Other ENT (abnormal movement of tongue) Neck Exam: Positive: Supple Chest Exam: Positive: Rales (at both the bases), Rhonchi, Wheezing, Diminished Heart Exam: Positive: Tachycardic, Regular Rhythm, Normal S1, Normal S2; Negative: Rate Normal, Gallops, Murmurs, Rubs Telemetry: Positive: Sinus, Tachycardia Abdomen Exam: Positive: Normal bowel sounds, Soft, Other (obese) Extremity Exam: Negative: Clubbing, Cyanosis, Edema Skin Exam: Positive: Nl turgor and temperature; Negative: Breakdown, Lesion Neuro Exam: Positive: Strength at 5/5 X4 ext, Normal Tone, Reflexes 2+, Other (DTRs of the knee and ankle exacerbated. planters downgoing. ) Psych Exam: Positive: Anxiety, Oriented x 3 LABORATORY DATA: Please see below. IMAGING: MRI Lumber spine Vertebrae: Unremarkable. There is straightening of the normal lumbar lordosis. L1-L2: Large anterior marginal osteophytes. Disc desiccation on the T2 weighted images.. No stenosis. L2-L3: Small anterior marginal osteophytes. Disc desiccation. Circumferential annulus bulge. No stenosis. L3-L4: Small anterior marginal osteophytes. Limbus vertebra. Modic type II endplate signal changes.. No stenosis. L4-L5: Narrowed intervertebral disc space with 5.7 mm of retrolisthesis of L5 with respect to L4. Small central area of signal loss within the disc on the T1 and T2-weighted images corresponds to a vacuum disc seen on CT scan.. Faint increased signal within the disc centrally on the T2-weighted images may be related to susceptibility effect from the vacuum disc. Circumferential annulus bulge with right posterior lateral disc extrusion. Narrowed right lateral recess. Hypertrophic facet arthropathy. Mild right foraminal stenosis. L5-S1: Narrowed intervertebral disc space. Modic type II endplate signal changes. Small area of increased signal within the disc on the T2-weighted images again corresponding to vacuum disc seen on CT scan. No stenosis. Spinal cord: The conus is posterior to L1.. No cord compression. Soft tissues: Unremarkable. IMPRESSION: 1. Grade 1 spondylolisthesis at L4-5 with right posterior lateral disc extrusion. Narrowed right lateral recess and mild right foraminal stenosis. 2. No spinal stenosis or cord compression ACTIVITY: [As tolerated]. DIET: As tolerated. DISPOSITION: [facility]. DISCHARGE INSTRUCTIONS: Follow up with Ortho at outpatient as need will need follow up with urologist for recurrent urinary retention Follow up with MD at Rehab. DISCHARGE CONDITION: [Stable]. TIME SPENT ON DISCHARGE: Greater than 30 minutes. Vital Signs/I&Os Vital Signs Date Time Temp Pulse Resp B/P (MAP) Pulse Ox O2 Delivery O2 Flow Rate FiO2 08/10/18 09:29 18 08/10/18 06:00 98.1 85 120/67 (84) 94 I&O- Last 24 Hours up to 6 AM 08/10/18 06:00 Intake Total 2000 ml Output Total 2390 ml Balance -390 ml Laboratory Data Labs 24H Laboratory Tests 2 08/10/18 05:52: Immature Granulocyte % (Auto) 0.7, White Blood Count 12.9H, Red Blood Count 4.77, Hemoglobin 13.8, Hematocrit 41.4L, Mean Corpuscular Volume 86.8, Mean Corpuscular Hemoglobin 28.9, Mean Corpuscular Hemoglobin Concent 33.3, Red Cell Distribution Width 15.3H, Platelet Count 168, Neutrophils (%) (Auto) 74.1H, Lymphocytes (%) (Auto) 17.5L, Monocytes (%) (Auto) 7.0H, Eosinophils (%) (Auto) 0.5, Basophils (%) (Auto) 0.2, Neutrophils # (Auto) 9.5H, Lymphocytes # (Auto) 2.3, Monocytes # (Auto) 0.9H, Eosinophils # (Auto) 0.1, Basophils # (Auto) 0.0, Nucleated Red Blood Cells % (auto) 0.0, Anion Gap 7L, Glomerular Filtration Rate > 60.0, Blood Urea Nitrogen 19H, Creatinine 0.97, Sodium Level 139, Potassium Level 4.2, Chloride Level 104, Carbon Dioxide Level 28, Calcium Level 8.8 CBC/BMP Laboratory Tests 08/10/18 05:52 Red Blood Count 4.77, Mean Corpuscular Volume 86.8, Mean Corpuscular Hemoglobin 28.9, Mean Corpuscular Hemoglobin Concent 33.3, Red Cell Distribution Width 15.3 H, Neutrophils (%) (Auto) 74.1 H, Lymphocytes (%) (Auto) 17.5 L, Monocytes (%) (Auto) 7.0 H, Eosinophils (%) (Auto) 0.5, Basophils (%) (Auto) 0.2, Neutrophils # (Auto) 9.5 H, Lymphocytes # (Auto) 2.3, Monocytes # (Auto) 0.9 H, Eosinophils # (Auto) 0.1, Basophils # (Auto) 0.0, Calcium Level 8.8 Microbiology Microbiology 08/03/18 Blood Culture - Final, Complete NO GROWTH AFTER 5 DAYS 08/03/18 Blood Culture - Final, Complete NO GROWTH AFTER 5 DAYS Discharge Medications Scheduled Albuterol Sulfate (Albuterol Sulfate) 2.5 Mg/0.5 Ml Vial.neb, 2.5 MG NEB RQ8H Atorvastatin Calcium (Atorvastatin Calcium) 40 Mg Tablet, 20 MG PO DAILY, (Reported) Budesonide/Formoterol (Symbicort 80-4.5 Mcg Inhaler) 6.9 Gm Hfa.aer.ad, 2 PUFF INH BID Cholecalciferol (Vitamin D3) (Vitamin D3) 1,000 Unit Tablet, 2,000 UNIT PO DAILY, (Reported) Cyanocobalamin (Vitamin B-12) (Vitamin B-12) 1,000 Mcg Tablet, 1,000 MCG PO BID, (Reported) Diclofenac Epolamine (Flector) 1.3% Patch, 1 PATCH TOP Q12H Duloxetine Hcl (Duloxetine HCl) 60 Mg Cap, 60 MG PO DAILY, (Reported) Finasteride (Finasteride) 5 Mg Tab, 5 MG PO DAILY, (Reported) Gabapentin (Gabapentin) 100 Mg Capsule, 700 MG PO BID, (Reported) [facility] SENDS PATIENT 100MG TABLETS TO MAKE 700MG BID Latanoprost (Xalatan) 0.005% 2.5ML Drops, 1 DROP OU QHS, (Reported) Omeprazole (Omeprazole) 20 Mg Cap, 20 MG PO ACB, (Reported) Paroxetine HCl (Paroxetine HCl) 40 Mg Tab, 40 MG PO DAILY, (Reported) Prazosin Hcl (Prazosin HCl) 1 Mg Cap, 1 MG PO QHS, (Reported) Prednisone (Prednisone) 5 Mg Tablet, 5 MG PO DAILY, (Reported) Prednisone (Prednisone) 10 Mg Tablet, 10 MG PO TAPER 3 tabs daily x 1 day, then 2 tabs daily x 3 days, then 1 tab daily x 3 day then 5 mg daily to continue Sildenafil Citrate (Viagra) 50 Mg Tab, 50 MG PO ASDIRECTED, (Reported) Tamsulosin HCl (Flomax) 0.4 Mg Cap, 0.4 MG PO BID, (Reported) Tiotropium [place] Monohydrate (Spiriva) 18 Mcg Cap.w.dev, 1 INHALATION INH DAILY@08 Trazodone HCl (Trazodone HCl) 50 Mg Tablet, 50 MG PO QHS, (Reported) Scheduled PRN Albuterol Sulfate (Ventolin Hfa) 18 Gm Hfa.aer.ad, 2 PUFF INH Q4H PRN for SHORTNESS OF BREATH, (Reported) Lidocaine (Anecream) 4% Cream..g., 1 APLCT TOP DAILY PRN for PAIN, (Reported) APPLIES TO HIP Tramadol HCl (Tramadol HCl) 50 Mg Tablet, 50 MG PO Q8HP PRN for MODERATE PAIN (PS 5-7) Allergies Coded Allergies: acetaminophen (Verified Allergy, Unknown, 08/03/18) methocarbamol (Verified Allergy, Unknown, 08/03/18) terazosin (Verified Allergy, Unknown, 08/03/18) vardenafil (Verified Allergy, Unknown, 08/03/18) SAMIRA REA MD August 10, 2018 23:27
== END 2018-08-10 14:37 | DRG 726 ==
LOC: EDBD 12:01 → M ED 12:01 → M ED INP 16:15 → M MSPAV 20:29
PROVIDERS: ADMIT Internal Medicine Nephrology; ATTEND Internal Medicine Nephrology
DX: N40.1 Benign prostatic hyperplasia with lower urinary tract symptoms (principal); J44.1 Chronic obstructive pulmonary disease with (acute) exacerbation; E87.2 Acidosis; G24.01 Drug induced subacute dyskinesia; R26.89 Other abnormalities of gait and mobility; R33.9 Retention of urine, unspecified; E78.5 Hyperlipidemia, unspecified; M70.62 Trochanteric bursitis, left hip; M54.5 Low back pain; F43.10 Post-traumatic stress disorder, unspecified; Z79.82 Long term (current) use of aspirin; Z79.899 Other long term (current) drug therapy; Z88.8 Allergy status to other drugs, medicaments and biological substances; R25.1 Tremor, unspecified; Z96.652 Presence of left artificial knee joint; F17.200 Nicotine dependence, unspecified, uncomplicated; D72.829 Elevated white blood cell count, unspecified